=== PATIENT | male | born 1955 | race Caucasian/White ===

== ENCOUNTER → 2017-05-17 09:12 | Outpatient (CLI) | payer MEDICARE, OTHER, SELFPAY ==
[2017-05-17 11:11] LABS: Anion Gap 15.1 mEq/L (5-15); Blood Urea Nitrogen 16 mg/dL (7-18); Carbon Dioxide 26 mmol/L (21.0-32.0); Chloride 101 mmol/L (98-107); Creatinine,Serum 1.08 mg/dL (0.70-1.30); Estimated Glomerular Filt Rate 70 ml/min (>60); GFR (African American) 84 ML/MIN (>60); Glucose 94 mg/dL (74-106); Potassium 5.1 mmoL/L (3.5-5.1); Sodium 137 mmol/L (136-145)
== END ==
PROVIDERS: Internal Medicine Cardiovascular Disease; Visit Provider Internal Medicine
DX: I65.23 Occlusion and stenosis of bilateral carotid arteries (principal); I25.10 Atherosclerotic heart disease of native coronary artery without angina pectoris; E78.5 Hyperlipidemia, unspecified; I11.9 Hypertensive heart disease without heart failure
CPT/HCPCS: 36415; 80048

== ENCOUNTER → 2017-05-25 07:30 | Outpatient (CLI) | payer MEDICARE, OTHER, SELFPAY ==
--- NOTE | 2017-05-25 07:34 | CI_ITS ---
Cerebrovascular Exam Indications: 785.9 Bruit. 434.91 Cerebral artery occlusion unspecified with cerebral infarction. 433.10 Occlusion/stenosis of carotid artery without cerebral infarction. IMPRESSIONS 1. The bilateral vertebral arteries are patent with normal antegrade flow. 2. Study suggests 50-69% stenosis involving the right internal carotid artery. 3. Study suggests 100% stenosis involving the left internal carotid artery. No change from the study of 14-Sep-2016. History: Risk factors: Current tobacco use. Hypertension. Hyperlipidemia. Carotid duplex study. Complete study and Doppler flow study including spectral analysis, color and cortes scale imaging. Height: Height: 185.4cm. Height: 73in. Weight: Weight: 90.7kg. Weight: 199.6lb. Body mass index: BMI: 26.4kg/m^2. Body surface area: BSA: 2.17m^2. Location: Vascular laboratory. Patient status: Outpatient. Tables: Arterial flow: + +--------+--------+ Location V sys V ed + +--------+--------+ Right CCA - proximal 95.1cm/s 18.9cm/s + +--------+--------+ Right CCA - distal 44cm/s 12.6cm/s + +--------+--------+ Right ECA 62.9cm/s -------- + +--------+--------+ Right ICA - proximal 151cm/s 55.8cm/s + +--------+--------+ Right ICA - mid 113cm/s 45.6cm/s + +--------+--------+ Right ICA - distal 99.8cm/s 43.2cm/s + +--------+--------+ Right vertebral 48.7cm/s -------- + +--------+--------+ Left CCA - proximal 87.2cm/s 11cm/s + +--------+--------+ Left CCA - distal 39.8cm/s 7.4cm/s + +--------+--------+ Left ECA 103cm/s -------- + +--------+--------+ Left vertebral 33.9cm/s -------- + +--------+--------+ Velocity ratios: + + + + Right, V sys Right, V ed + + + + Max ICA/dist CCA 3.43 4.43 + + + + (Report amended ) Electronically signed by: Rosendo Wolff [id number]
== END ==
PROVIDERS: PCP Emergency Medicine; Visit Provider Internal Medicine Cardiovascular Disease
DX: I65.23 Occlusion and stenosis of bilateral carotid arteries (principal)
CPT/HCPCS: 93880

== ENCOUNTER → 2017-06-02 07:44 | Outpatient (CLI) | payer MEDICARE, OTHER, SELFPAY ==
[2017-06-02 08:07] LABS: Anion Gap 12.6 mEq/L (5-15); Blood Urea Nitrogen 12 mg/dL (7-18); Carbon Dioxide 26 mmol/L (21.0-32.0); Chloride 102 mmol/L (98-107); Estimated Glomerular Filt Rate 76 ml/min (>60); GFR (African American) 92 ML/MIN (>60); Glucose 104 mg/dL (74-106); Potassium 4.6 mmoL/L (3.5-5.1); Sodium 136 mmol/L (136-145)
== END ==
PROVIDERS: Visit Provider Physician Assistant
DX: I25.10 Atherosclerotic heart disease of native coronary artery without angina pectoris (principal); I65.23 Occlusion and stenosis of bilateral carotid arteries; M79.604 Pain in right leg; M79.605 Pain in left leg; R06.00 Dyspnea, unspecified; R60.9 Edema, unspecified
CPT/HCPCS: 36415; 80048; 83880

== ENCOUNTER → 2017-06-03 06:26 | Outpatient (CLI) | payer MEDICARE, OTHER, SELFPAY ==
--- NOTE | 2017-06-03 06:27 | CA_ITS ---
PROCEDURE: 2-D M-mode and color Doppler study INDICATIONS FOR THE TEST: Chest pain X COPDX Heart Murmur Tobacco SmokingX Palpitations Fatigue Syncope EdemaX HypertensionXDiabetes Mellitus Rheumatic Fever SOB HERNANDEZ Obesity HyperlipidemiaX Family History HD Additional History CAD LIMITED EXAM IN PSAX VIEWS PATIENT INFORMATION HEIGHT: 73 WEIGHT:220 GENDER: Male B/P:121/69 2-D/M-MODE INTERPRETATION: 2-D MEASUREMENTS OBSERVED VALUES IN CMS Right Ventricular Dimension (RVDd) 2.6 Interventricular Septum (Thickness)(IVsd) .9 Left Ventricular Internal Dimensions(LVIDd) 5.6 Left Ventricular Posterior Wall (Thickness)(LVPWd) .9 Aortic Root 3.5 Aortic Cusp Separation 2.0 Left Atrial Dimensions (LAD) 2.3 2D 1. Left atrium is qualitatively mildly enlarged, left ventricle is normal size, there is mild concentric left ventricular hypertrophy, visually estimated ejection fraction 55% with no obvious regional wall motion abnormality. 2. The right atrium and right ventricle are normal size and contractility. 3. The aortic valve is minimally thickened and fibrosed. 4. The mitral valve has mitral annular calcification. 5. The tricuspid valve restructure normal 6. The pulmonic valve is poorly visualized. 7. There is trivial pericardial effusion noted. DOPPLER INTERROGATION: Doppler interrogation of the aortic, mitral and tricuspid valvular presence of mild mitral and tricuspid regurgitation, tricuspid regurgitant jet velocity insufficient for calculation of the right ventricular systolic pressure, grade 1 diastolic dysfunction seen with tissue Doppler evidence of raised left atrial pressure. CONCLUSION: 1. Mildly left atrium, normal left ventricular size, mild concentric left ventricular hypertrophy, visually estimated ejection fraction 55% with no obvious regional wall motion abnormality, grade 1 diastolic dysfunction seen with tissue Doppler evidence of raised left atrial pressure. 2. Mild mitral and tricuspid addition 3. No significant pericardial effusion noted.
== END ==
PROVIDERS: PCP Emergency Medicine; Visit Provider Internal Medicine
DX: I25.10 Atherosclerotic heart disease of native coronary artery without angina pectoris (principal)
CPT/HCPCS: 93306

== ENCOUNTER → 2017-08-12 08:11 | Outpatient (CLI) | payer MEDICARE, OTHER, SELFPAY ==
[2017-08-12 10:32] LABS: Anion Gap 15.2 mEq/L (5-15); Blood Urea Nitrogen 18 mg/dL (7-18); Carbon Dioxide 28 mmol/L (21.0-32.0); Chloride 95 mmol/L (98-107); Creatinine,Serum 1.19 mg/dL (0.70-1.30); Estimated Glomerular Filt Rate 62 ml/min (>60); GFR (African American) 75 ML/MIN (>60); Glucose 99 mg/dL (74-106); Potassium 5.2 mmoL/L (3.5-5.1); Sodium 133 mmol/L (136-145)
== END ==
PROVIDERS: PCP Emergency Medicine; Visit Provider Internal Medicine Cardiovascular Disease
DX: E87.5 Hyperkalemia (principal)
CPT/HCPCS: 36415; 80048

== ENCOUNTER → 2017-09-06 12:45 | Outpatient (CLI) | payer MEDICARE, OTHER, SELFPAY ==
[2017-09-06 10:58] LABS: Anion Gap 15.5 mEq/L (5-15); Blood Urea Nitrogen 15 mg/dL (7-18); Calcium 9.3 mg/dL (8.5-10.1); Carbon Dioxide 24 mmol/L (21.0-32.0); Chloride 100 mmol/L (98-107); Creatinine,Serum 1.17 mg/dL (0.70-1.30); Estimated Glomerular Filt Rate 63 ml/min (>60); GFR (African American) 76 ML/MIN (>60); Glucose 104 mg/dL (74-106); Potassium 4.5 mmoL/L (3.5-5.1); Sodium 135 mmol/L (136-145)
== END ==
PROVIDERS: Visit Provider Physician Assistant
DX: I25.10 Atherosclerotic heart disease of native coronary artery without angina pectoris (principal); I11.9 Hypertensive heart disease without heart failure; E78.5 Hyperlipidemia, unspecified; R60.9 Edema, unspecified; R06.00 Dyspnea, unspecified
CPT/HCPCS: 36415; 80048

== ENCOUNTER → 2017-10-26 09:06 | Outpatient (CLI) | payer MEDICARE, OTHER, SELFPAY ==
[2017-10-26 09:57] LABS: Anion Gap 14.8 mEq/L (5-15); Blood Urea Nitrogen 15 mg/dL (7-18); Calcium 9.1 mg/dL (8.5-10.1); Carbon Dioxide 26 mmol/L (21.0-32.0); Chloride 97 mmol/L (98-107); Creatinine,Serum 1.36 mg/dL (0.70-1.30); Estimated Glomerular Filt Rate 53 ml/min (>60); GFR (African American) 64 ML/MIN (>60); Glucose 104 mg/dL (74-106); Potassium 4.8 mmoL/L (3.5-5.1); Sodium 133 mmol/L (136-145)
== END ==
PROVIDERS: PCP Emergency Medicine; Visit Provider Physician Assistant
DX: I25.10 Atherosclerotic heart disease of native coronary artery without angina pectoris (principal)
CPT/HCPCS: 36415; 80048

== ENCOUNTER → 2017-11-30 07:01 | Outpatient (CLI) | payer MEDICARE, OTHER, SELFPAY ==
--- NOTE | 2017-11-30 07:04 | NM_ITS ---
History and Indications: Coronary artery disease, hypertension, hyperlipidemia, chronic tobacco use, family history, chest pain and shortness of breath Procedure: Patient received a 0.4 mg of intravenous Lexiscan, resting heart rate was 74 beats per resting blood pressure 108/68, with Lexiscan maximum heart rate achieved was 102 bpm which is less than 85% of the maximum predicted heart rate and a blood pressure was 80/50. With Lexiscan patient complained of lightheadedness and dizziness. Electrocardiogram: Resting electrocardiogram showed sinus rhythm inferior infarct age indeterminate, right ventricle conduction delay, with Lexiscan there is less than 1.[address] segment depression noted from the baseline EKG. The EKG portion of the Lexiscan Myoview is nondiagnostic. Cardiac stress and resting SPECT images: Cardiac stress and rest SPECT images were obtained using technetium 99 Myoview 32.1 mCi at stress and 10.1 mCi at rest. Gated SPECT further analysis of segmental wall motion and calculation of the ejection fraction also done. Cardiac stress and rest SPECT images show a fixed defect involving the inferior, posterobasal and inferior apical wall suggestive of myocardial scarring, there is no significant sophia-infarct ischemia seen. Computer derived ejection fraction 59% with the moderate hypokinesis involving the inferior and posterobasal wall. Right ventricle is normal size and contractility. Conclusion: 1. The EKG portion of the Lexiscan Myoview is nondiagnostic. 2. Scintigraphic evidence of myocardial scarring involving the inferior and posterobasal wall without significant sophia-infarct ischemia. Computer derived ejection fraction is 59% with segmental wall motion abnormality described above, right ventricle is normal size and contractility. 3. Abnormal Lexiscan Myoview study.
--- NOTE | 2017-11-30 07:31 | HMH.ITSHM ---
TRAZODONE SPIRONOLACTON RANOLAZINE PROPRANOLOL PRAVASTATIN LISINOPRIL FUROSEMIDE ALBUTEROL
== END ==
PROVIDERS: PCP Emergency Medicine; Visit Provider Internal Medicine Cardiovascular Disease
DX: E78.5 Hyperlipidemia, unspecified (principal); I11.9 Hypertensive heart disease without heart failure; I20.9 Angina pectoris, unspecified; I25.10 Atherosclerotic heart disease of native coronary artery without angina pectoris; I45.10 Unspecified right bundle-branch block; I51.9 Heart disease, unspecified; I65.23 Occlusion and stenosis of bilateral carotid arteries; R60.9 Edema, unspecified
CPT/HCPCS: 78452; 93017; 93306; 93880; A9502; J2785

== ENCOUNTER → 2017-12-06 09:31 | Outpatient (CLI) | payer MEDICARE, OTHER, SELFPAY ==
--- NOTE | 2017-12-06 09:33 | CA_ITS ---
PROCEDURE: 2-D M-mode and color Doppler study INDICATIONS FOR THE TEST: Chest pain X COPDX Heart Murmur Tobacco SmokingX Palpitations Fatigue Syncope EdemaX Hypertension Diabetes Mellitus Rheumatic Fever SOB HERNANDEZ Obesity Hyperlipidemia Family History HD Additional History TDS COPD PATIENT INFORMATION HEIGHT: 73 WEIGHT:198 GENDER: Male B/P:96/57 2-D/M-MODE INTERPRETATION: 2-D MEASUREMENTS OBSERVED VALUES IN CMS Right Ventricular Dimension (RVDd) 2.4 Interventricular Septum (Thickness)(IVsd) .9 Left Ventricular Internal Dimensions(LVIDd) 4.4 Left Ventricular Posterior Wall (Thickness)(LVPWd) 1.0 Aortic Root 4.0 Aortic Cusp Separation 1.8 Left Atrial Dimensions (LAD) 2.5 2D 1. Left atrium is mildly enlarged, left ventricle is normal size, mild concentric left ventricular hypertrophy, visually estimated ejection fraction 55% with no regional wall motion abnormality, endocardial surfaces are poorly visualized. 2. The right atrium and right ventricle are normal size and contractility. 3. The aortic valve is minimally thickened and fibrosed. 4. The mitral and tricuspid valve are grossly normal. 5. The pulmonic valve is poorly visualized. 6. No significant pericardial effusion noted. DOPPLER INTERROGATION: Doppler interrogation of the aortic, mitral and tricuspid valvular presence of mild mitral and tricuspid regurgitation, tricuspid regurgitation jet velocity is insufficient for calculation of the right ventricular systolic pressure, grade 1 diastolic dysfunction seen without tissue Doppler evidence of raised left atrial pressure. CONCLUSION: 1. Mildly enlarged left atrium, normal left ventricular size, mild concentric left ventricular hypertrophy, visually estimated ejection fraction 55% with no regional wall motion abnormality, endocardial subsequent poorly visualized, grade 1 diastolic dysfunction seen without tissue Doppler evidence of raised left atrial pressure. 2. Mild mitral and tricuspid regurgitation 3. No significant pericardial effusion noted.
--- NOTE | 2017-12-06 09:33 | CI_ITS ---
Cerebrovascular Exam IMPRESSIONS 1. The bilateral vertebral arteries are patent with normal antegrade flow. 2. Study suggests 50-69% stenosis involving theright internal carotid artery. 3. Study suggests occlusion involving theleft internal carotid artery. No change from the study of 25-May-2017. Carotid duplex study. Complete study and Doppler flow study including spectral analysis, color and cortes scale imaging. Height: Height: 185.4cm. Height: 73in. Weight: Weight: 90.7kg. Weight: 199.6lb. Body mass index: BMI: 26.4kg/m^2. Body surface area: BSA: 2.17m^2. Location: Vascular laboratory. Patient status: Outpatient. Tables: Arterial flow: + +--------+--------+ Location V sys V ed + +--------+--------+ Right CCA - proximal 90.9cm/s 35.4cm/s + +--------+--------+ Right CCA - distal 61.5cm/s 20.1cm/s + +--------+--------+ Right ECA 66.7cm/s -------- + +--------+--------+ Right ICA - proximal 148cm/s 78.6cm/s + +--------+--------+ Right ICA - mid 96.3cm/s 45.2cm/s + +--------+--------+ Right ICA - distal 92.4cm/s 44.6cm/s + +--------+--------+ Right vertebral 41cm/s -------- + +--------+--------+ Left CCA - proximal 115cm/s 19.6cm/s + +--------+--------+ Left CCA - distal 88.7cm/s 14cm/s + +--------+--------+ Left ECA 107cm/s -------- + +--------+--------+ Left vertebral 60.8cm/s -------- + +--------+--------+ Velocity ratios: + + + + Right, V sys Right, V ed + + + + Max ICA/dist CCA 2.41 3.91 + + + + (Report amended ) Electronically signed by: Rosendo Wolff [id number]
== END ==
PROVIDERS: PCP Emergency Medicine; Visit Provider Internal Medicine Cardiovascular Disease
DX: E78.5 Hyperlipidemia, unspecified; I11.9 Hypertensive heart disease without heart failure; I20.9 Angina pectoris, unspecified; I25.10 Atherosclerotic heart disease of native coronary artery without angina pectoris; I51.9 Heart disease, unspecified; F17.200 Nicotine dependence, unspecified, uncomplicated; I95.9 Hypotension, unspecified; R06.00 Dyspnea, unspecified; I65.23 Occlusion and stenosis of bilateral carotid arteries
CPT/HCPCS: 93306; 93880

== ENCOUNTER → 2018-01-21 10:44 | Outpatient (CLI) | payer MEDICARE, OTHER, SELFPAY | PROVIDERS: PCP Emergency Medicine; Visit Provider Orthopaedic Surgery Adult Reconstructive Orthopaedic Surgery | DX: M51.36 Other intervertebral disc degeneration, lumbar region (principal); M54.9 Dorsalgia, unspecified ==

== ENCOUNTER 2018-01-24 07:41 | Outpatient (RCR) | payer MEDICARE, OTHER, SELFPAY | END 2018-01-24 08:00 | disposition home or self-care (01) | LOC: PT 07:41 | PROVIDERS: Visit Provider Orthopaedic Surgery Adult Reconstructive Orthopaedic Surgery | DX: M51.36 Other intervertebral disc degeneration, lumbar region (principal) | CPT/HCPCS: 97110; 97163 ==

== ENCOUNTER → 2018-05-24 14:58 | Outpatient (CLI) | payer MEDICARE, OTHER, SELFPAY ==
[2018-05-24 15:29] LABS: Basophils # 0.1 K/mm3 (0-0.2); Basophils % 0.6 % (0.1-2.0); Eosinophils # 0.2 K/mm3 (0.0-0.4); Eosinophils % 2.4 % (0.1-12.0); Hematocrit 45.5 % (42.0-52.0); Lymphocytes # 1.7 K/mm3 (0.7-4.5); Lymphocytes % 17.8 % (10-50); Mean Corpuscular HGB Conc 32.9 g/dL (31.8-35.4); Mean Corpuscular Hemoglobin 33.6 pg (27.0-31.2); Mean Corpuscular Volume 102.2 fl (80-94); Mean Platelet Volume 7.9 fl (7.4-10.4); Monocytes # 0.6 K/mm3 (0.1-1.0); Monocytes % 5.8 % (1.7-9.3); Neutrophils # 7.1 K/mm3 (1.8-7.8); Neutrophils % 73.5 % (37.0-80.0); Platelet Count 285 K/mm3 (142-424); Red Blood Count 4.46 M/mm3 (4.60-6.20); Red Cell Distribution Width 12.7 % (11.5-17.5); White Blood Count 9.6 K/mm3 (4.8-10.8)
[2018-05-24 15:39] LABS: Alanine Aminotransferase 20 U/L (12-78); Albumin Level 3.9 gm/dL (3.4-5.0); Albumin/Globulin Ratio 1.1 (1.1-1.8); Alkaline Phosphatase 73 U/L (46-116); Anion Gap 17.1 mEq/L (5-15); Aspartate Amino Transferase 17 U/L (15-37); Bilirubin,Total 0.4 mg/dL (0.2-1.0); Blood Urea Nitrogen 10 mg/dL (7-18); Calcium 8.9 mg/dL (8.5-10.1); Carbon Dioxide 24 mmol/L (21.0-32.0); Chloride 102 mmol/L (98-107); Chol/HDL Ratio 3.7 (1-3.5); Cholesterol 157 mg/dL (140-200); Creatinine,Serum 1.12 mg/dL (0.70-1.30); Estimated Glomerular Filt Rate 66 ml/min (>60); GFR (African American) 80 ML/MIN (>60); Globulin 3.4 gm/dl (1.3-3.2); Glucose 94 mg/dL (74-106); HDL Cholesterol 42 mg/dL (27-67); LDL Cholesterol 64 mg/dL (0-130); Potassium 5.1 mmoL/L (3.5-5.1); Sodium 138 mmol/L (136-145); T4 (Thyroxine) 8.9 ug/dl (4.7-13.3); Thyroid Stimulating Hormone 1.09 uIU/ml (0.358-3.740); Total Protein,Serum 7.3 gm/dL (6.4-8.2); Triglycerides 255 mg/dL (30-200); VLDL Cholesterol 51 mg/dL (0-40)
[2018-05-26 12:58] LABS: Prostate Specific Ag 0.5 ng/mL (0.0-4.0); Vitamin D 25 Hydroxy 7.6 ng/mL (30.0-100.0)
== END ==
PROVIDERS: Visit Provider Nurse Practitioner Family
DX: R60.9 Edema, unspecified (principal); Z00.00 Encounter for general adult medical examination without abnormal findings; M54.16 Radiculopathy, lumbar region; I11.9 Hypertensive heart disease without heart failure
CPT/HCPCS: 80053; 80061; 82652; 84153; 84154; 84436; 84443; 85025

== ENCOUNTER 2018-06-21 19:54 | Observation (INO) ==
[2018-06-21 20:15] LABS: Basophils % 0.6 % (0.1-2.0); Eosinophils # 0.2 K/mm3 (0.0-0.4); Eosinophils % 3.8 % (0.1-12.0); Hematocrit 41.3 % (42.0-52.0); Hemoglobin 14.3 g/dL (14.1-18.0); Lymphocytes # 1.8 K/mm3 (0.7-4.5); Lymphocytes % 30.3 % (10-50); Mean Corpuscular HGB Conc 34.5 g/dL (31.8-35.4); Mean Corpuscular Hemoglobin 33.2 pg (27.0-31.2); Mean Corpuscular Volume 96.2 fl (80-94); Mean Platelet Volume 7.1 fl (7.4-10.4); Monocytes # 0.4 K/mm3 (0.1-1.0); Neutrophils # 3.6 K/mm3 (1.8-7.8); Neutrophils % 59.3 % (37.0-80.0); Platelet Count 268 K/mm3 (142-424); Red Cell Distribution Width 12.7 % (11.5-17.5); White Blood Count 6.1 K/mm3 (4.8-10.8)
--- NOTE | 2018-06-21 20:29 | Emergency Department Note ---
ED Disposition Clinical Impression: Unstable angina pectoris, RBBB, Tobacco dependence, Diastolic dysfunction CAD (coronary artery disease) Qualifiers: Coronary Disease-Associated Artery/Lesion type: unspecified vessel or lesion type [place] vs. transplanted heart: [place] heart Associated angina: with unstable angina Qualified Code(s): I25.110 - Atherosclerotic heart disease of [place] coronary artery with unstable angina pectoris HLD (hyperlipidemia) Qualifiers: Hyperlipidemia type: unspecified Qualified Code(s): E78.5 - Hyperlipidemia, unspecified HHD (hypertensive heart disease) Qualifiers: Heart failure presence: with heart failure Heart failure type: unspecified Qualified Code(s): I11.0 - Hypertensive heart disease with heart failure Disposition: Admitted as Observation Condition on Discharge: Fair Referrals: Godfrey Jhaveri MD [Primary Care Provider] - - Critical Care Critical Care Time: No Attestation: On 06/21/18, the high probability of a clinically significant, sudden or life threatening deterioration of the following system(s) required my full and direct attention, intervention and personal management. The time I documented below is in addition to time spent performing reported procedures but includes the following listed in this critical care notation. Medical Decision Making - Medical Records Medical records reviewed: Yes: I reviewed the patient's medical records. - Eric Inquiry Pt receiving controlled substance: No Vital Signs: 06/21/18 19:54 06/21/18 20:09 06/21/18 21:00 Temperature 98.8 F Temperature Source Oral Pulse Rate [Right Radial] 88 86 80 Respiratory Rate 16 16 Blood Pressure [Right Arm] 115/87 115/97 H 132/84 Blood Pressure Mean [Right Arm] 96 103 100 Blood Pressure Source [Right Arm] Automatic Cuff Automatic Cuff Automatic Cuff Blood Pressure Position [Right Arm] Sitting Sitting Sitting 02 Sat by Pulse Oximetry 97 97 97 Oxygen Delivery Method Room Air Room Air Room Air 06/21/18 21:55 06/21/18 22:05 Temperature Temperature Source Pulse Rate [Right Radial] 76 72 Respiratory Rate Blood Pressure [Right Arm] 131/81 129/74 Blood Pressure Mean [Right Arm] 97 92 Blood Pressure Source [Right Arm] Automatic Cuff Automatic Cuff Blood Pressure Position [Right Arm] Sitting Sitting 02 Sat by Pulse Oximetry 97 97 Oxygen Delivery Method Room Air Room Air - Lab Data Lab results reviewed: Yes: I reviewed the patient's lab results. Lab Results 06/21/18 20:05: WBC 6.1, RBC 4.30 L, Hgb 14.3, Hct 41.3 L, MCV 96.2 H, MCH 33.2 H, MCHC 34.5, RDW 12.7, Plt Count 268, MPV 7.1 L, Neut % (Auto) 59.3, Lymph % (Auto) 30.3, [place] % (Auto) 6.0, Eos % (Auto) 3.8, Baso % (Auto) 0.6, Neut # (Auto) 3.6, Lymph # (Auto) 1.8, [place] # (Auto) 0.4, Eos # (Auto) 0.2, Baso # ( Auto) 0.0 06/21/18 20:05: Sodium 135 L, Potassium 3.5, Chloride 98, Carbon Dioxide 27, Anion Gap 13.5, BUN 6 L, Creatinine 1.05, Estimated Creat Clear 98, Estimated GFR 72, Est GFR ( Amer) 87, Glucose 99, Calcium 9.3, Troponin I < 0.02 06/21/18 21:20: Urine Color Yellow, Urine Appearance Clear, Urine pH 6.0, Ur Specific [place] <= 1.005, Urine Protein Negative, Urine Glucose (UA) Negative, Urine Ketones Negative, Urine Blood Trace-i, Urine Nitrate Negative, Urine Bilirubin Negative, Urine Urobilinogen 0.2, Ur Leukocyte Esterase Negative, Urine RBC 5-10, Urine WBC 3-5, Ur Squamous Epith Cells Occasional, Urine B acteria Trace Result diagrams: 06/21/18 20:05 06/21/18 20:05 Orders (Tests/Meds): ED MEDICATIONS Generic Name Dose Route Start Last Admin Trade Name Freq PRN Reason Stop Dose Admin Sodium Chloride 1,000 mls @ 999 mls/hr 06/21/18 20:15 06/21/18 20:31 Sod Chlor 0.9% 1000ml Bag IV 06/21/18 21:15 999 mls/hr .Q1H1M SAL[place] Administration Discontinued Medications Generic Name Dose Route Start Last Admin Trade Name Freq PRN Reason Stop Dose Admin Aspirin 324 mg 06/21/18 20:04 06/21/18 20:06 Aspirin 81mg Chewable Tablet PO 06/21/18 20:05 324 mg ONCE ONE Administration Methylprednisolone Sodium Succinate 125 mg 06/21/18 20:30 06/21/18 20:31 Solu-Medrol 125mg/2ml Vial IV 06/21/18 20:31 125 mg ONCE ONE Administration Nitroglycerin 1 gm 06/21/18 22:03 06/21/18 22:07 Nitroglycerin 1 Inch Oint Udp TD 06/21/18 22:04 1 gm ONCE ONE Administration ORDERS Category Date Time Status XR chest portable Stat Exams 06/21/18 20:03 Taken - Radiology Data #1 Image(s): Chest Image Reviewed: Yes I reviewed the patient's radiology image Preliminary Findings: Normal/NAD - ECG Data Tracing #1 Normal Sinus Rhythm: Yes Ischemic changes: non-specific ST-T wave changes Conduction abnormalities present: RBBB ECG compared to prior tracings: there are no significant changes Chest Pain HPI - General Chief Complaint: Chest Pain Stated Complaint: Chest Pain Time Seen by Provider: 06/21/18 20:20 Mode of Arrival: Wheelchair Source of Information: Patient, Spouse, Relative, Medical Record Limitations: No Limitations Description of Symptoms (Recalled from ER Triage Doc. by RN): Pt c/o chest pain x3 days, reports chest pain became worse today along with complaints of generalized weakness and dizziness, reports chest pain "comes and goes" and is in the "left side of his chest" non radiating, associated shortness of breath, no distress during triage, alert oriented x3 - History of Present Illness HPI narrative: increasing ant chest pain over the last 3 days with hx of cad - last cath june 2018-pt with chest with act and rest - does continue to smoke complaint: chest pain indicative of cardiac Onset (ago): day(s) Duration: intermittent Activity at onset: during rest Pain location: left chest Quality: tightness Pain radiation: LUE Risk Factors for CAD: Hypertension, Family Hx of CAD, Smoking Treatments prior to or on arrival for Cardiac Chest Pain: none - ARMANDO Score for Non-Stemi Age of Patient: 60-69 years old Heart Rate: 70-89 bpm Systolic Blood Pressure: 100-119 mmHg Serum Creatinine: 0.80-1.19 mg/dl CHF [place] Class: I-No CHF Other Risk Factors: None Non-Stemi Risk Score: 117 - Related Data Prior Cardiac Testing/Procedures: Cardiac Angiogram Home Medications Medication Instructions Recorded Confirmed Furosemide [Furosemide 40MG tAB] 40 mg PO DAILY 12/25/17 06/21/18 Lisinopril [Prinivil 20mg Tablet] 20 mg PO DAILY 12/25/17 06/21/18 Clopidogrel Bisulfate [Plavix 75mg 75 mg PO DAILY 06/21/18 06/21/18 Tab] Ergocalciferol (Vitamin D2) 50,000 unit PO QWEEK 06/21/18 06/21/18 [Drisdol] Previous Rx's Medication Instructions Recorded tizanidine 4 mg tablet 4 mg PO TID PRN #12 tab 12/24/17 ranolazine ER 500 mg 500 mg PO Q12H #60 tab 02/24/18 tablet,extended release,12 hr albuterol sulfate HFA 90 1 puff INHALATION Q4-6H PRN #18 g 02/27/18 mcg/actuation aerosol inhaler spironolactone 25 mg tablet 25 mg PO DAILY #90 tab 03/25/18 pravastatin 40 mg tablet 40 mg PO QHS #90 tab 05/24/18 trazodone 50 mg tablet 50 mg PO QHS PRN #90 tab 06/14/18 propranolol ER 120 mg capsule,24 120 mg PO QHS #30 cap 06/17/18 hr,extended release Allergies Allergy/AdvReac Type Severity Reaction Status Date / Time Iodinated Contrast Media - Allergy Unknown Verified 06/21/18 20:03 Oral and [Iodinated Contrast Media - IV Dye] [facility] History - Hepatitis A Screen Drug use history?: No High risk sexual behaviors?: No History of sexually transmitted infection?: No Currently employed?: No Childcare worker?: No Do you have indoor plumbing?: Yes Do you have electricity?: Yes Attestation statement:: This patient has been screened for Hepatitis A risk factors. I have reviewed the patient's past medical history: Yes Medical History: Reports:: Chronic Obstructive Pulmonary Disease (COPD), Coronary Artery Disease, Hyperlipidemia, Hypertension Denies:: Cancer, Diabetes Mellitus Type 1, Diabetes Mellitus Type 2, Internal Pacemaker, MRSA, Seizures Other Surgeries: Yes: No Previous Surgery, Angiogram, Cancer Surgery, Cardiac Catheterization, Coronary Stent, Other. 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) Fractures: No - Social History Smoking Status: Current every day smoker Tobacco Type: cigarettes # Packs/Day (cigarettes): 1 Alcohol Intake: never Alcohol Intake Frequency:: other Substance Use Type: denies use Occupational Status: unemployed Housing: apartment Household Members: other - Psychiatric History Expresses thoughts of harming self/others: None Suicide Plan Description: No Plan Family Hx:: Cancer Comment: heart disease ROS Obtained: Yes All systems reviewed & no additional complaints - Constitutional Constitutional: Denies fever(s) - Eyes Eyes: Denies change in vision - ENT Ears, Nose, Mouth, and Throat: Denies sore throat - Cardiovascular Cardiovascular: Reports chest pain at rest, Reports radiating jaw, neck or arm pain - Respiratory Respiratory: No cough - Gastrointestinal Gastrointestingal: Denies: vomiting - Genitourinary Male Genitourinary: Denies hematuria - Musculoskeletal Musculoskeletal: Denies joint swelling - Integumentary/Breasts Skin/Breast: Denies rash - Neurologic Neurologic: Denies headache(s), Denies seizure-like activity Physical Exam - General General appearance: alert, in no apparent distress - Head Head exam: normocephalic - Eye Eye exam: Present: PERRL, EOMI - ENT ENT exam: Present: mucous membranes dry - Neck Neck exam: Present: trachea midline - Respiratory Respiratory exam: Present: normal lung sounds bilaterally. Absent: respiratory distress - Cardiovascular Cardiovascular exam: Present: regular rate, systolic murmur, +S4 - Abdominal Exam Abdominal exam: Present: soft - Extremities Exam Extremities exam: Present: full ROM - Neurological Exam Neurological exam: Present: alert, oriented X3, CN II-XII intact - Psychiatric Psychiatric exam: Present: normal affect - Skin Skin exam: Absent: rash
[2018-06-21 20:30] LABS: Anion Gap 13.5 mEq/L (5-15); Blood Urea Nitrogen 6 mg/dL (7-18); Calcium 9.3 mg/dL (8.5-10.1); Carbon Dioxide 27 mmol/L (21.0-32.0); Chloride 98 mmol/L (98-107); Glucose 99 mg/dL (74-106); Potassium 3.5 mmoL/L (3.5-5.1); Sodium 135 mmol/L (136-145)
[2018-06-21 21:30] LABS: Microscopic, Urine URINE MICROSCOPIC (MICROSCOPIC)
[2018-06-21 21:34] LABS: Appearance,Urine CLEAR (Clear); Bilirubin,Urine Negative (Negative); Blood, Urine TRACE-I (Negative); Color,Urine YELLOW (Yellow); Glucose,Urine (UA) Negative (Negative); Ketones,Urine Negative (Negative); Leukocyte Esterase,Urine Negative (Negative); Protein,Urine Negative (Negative); Specific Gravity, Urine <= 1.005 (1.005-1.030); Urobilinogen,Urine 0.2 EU/dl (0.2)
[2018-06-21 21:53] LABS: Bacteria,Urine Trace /lpf; Squamous Epithelial Cell,Urine Occasional #/hpf (0-5)
[2018-06-22 04:59] LABS: Basophils % 0.2 % (0.1-2.0); Eosinophils % 0.6 % (0.1-12.0); Hematocrit 39.1 % (42.0-52.0); Hemoglobin 13.3 g/dL (14.1-18.0); Lymphocytes # 0.7 K/mm3 (0.7-4.5); Lymphocytes % 18.1 % (10-50); Mean Corpuscular HGB Conc 33.9 g/dL (31.8-35.4); Mean Corpuscular Hemoglobin 33.2 pg (27.0-31.2); Mean Corpuscular Volume 98.1 fl (80-94); Mean Platelet Volume 7.1 fl (7.4-10.4); Monocytes # 0.1 K/mm3 (0.1-1.0); Neutrophils # 2.9 K/mm3 (1.8-7.8); Platelet Count 223 K/mm3 (142-424); Red Blood Count 3.99 M/mm3 (4.60-6.20); Red Cell Distribution Width 12.7 % (11.5-17.5); White Blood Count 3.6 K/mm3 (4.8-10.8)
[2018-06-22 05:01] LABS: Calcium 8.7 mg/dL (8.5-10.1); Chol/HDL Ratio 3.7 (1-3.5)
--- NOTE | 2018-06-22 07:33 | Pharmacy Consult Notes ---
[facility] Pharmacy VTE Monitoring - Patient Demographics Admission date: 06/21/18 Report Date: 06/22/18 Time: 07:32 Allergies/Adverse Reactions: Patient Allergies Iodinated Contrast Media - Oral and [Iodinated Contrast Media - IV Dye] Allergy (Unknown, Verified 06/21/18 20:03) Height: 1.85 m Weight: 93.582 kg Patient Problems: Current Active Problems (Updated 06/21/18 @ 22:21 by Godfrey Jhaveri MD) Unstable angina pectoris (Acute) Diastolic dysfunction (Chronic) RBBB (Acute) Tobacco dependence (Chronic) HLD (hyperlipidemia) (Chronic) HHD (hypertensive heart disease) (Chronic) CAD (coronary artery disease) (Chronic) - VTE Risk Labs: VTE Related Lab Results Hgb 13.3 g/dL (14.1-18.0) L 06/22/18 04:26 Hct 39.1 % (42.0-52.0) L 06/22/18 04:26 Plt Count 223 K/mm3 (142-424) 06/22/18 04:26 BUN 9 mg/dL (7-18) D 06/22/18 04:26 Creatinine 1.03 mg/dL (0.70-1.30) 06/22/18 04:26 Estimated Creat Clear 98 mL/min (50-200) 06/22/18 04:26 Was VTE Risk Assessment Performed: Yes VTE Score: 7 VTE Risk Level: Moderate Risk Clinical Trial Participant: No - Prophylaxis VTE Prophylaxis Ordered?: Yes Types of VTE Prophylaxis: TEDS Knee High Location of Applied Device: Bilateral Lower Extremeties
--- NOTE | 2018-06-22 10:17 | Consult Report ---
History of Present Illness Consult date: 06/22/18 Requesting physician: Godfrey Jhaveri Consult reason: chest pain Chief complaint: Chest pain Additional Medical History:: 1 coronary artery disease 2 hypertension 3 hyperlipidemia 4 COPD 5 tobacco user History of present illness: This is a 62-year-old gentleman who was admitted to the hospital with chest pain. The patient states that his chest pain had been going on for approximately 3 days. States that this is a sharp pain in the left side of his chest. He states that it does not radiate. It was associated with shortness of breath and nausea. He states that this pain was about a 9 out of 10 at home. He states that since being in the hospital this pain has improved a lot. He denies any fever, chills, vomiting, diarrhea, PND or orthopnea. The patient is very adamant that he is ready to go home today. Chest pain was at rest and with exertion. Nothing worsened the chest pain and nothing helped to improve the chest pain. The patient did have a cardiac catheterization in June 2017. It did show some mild disease to his LAD. His circumflex artery had patent stents and mild disease. His right coronary artery also had some mild to moderate disease. His LVEDP was elevated at 30 mmHg. The patient does need long-acting nitrates and diuretics. [facility] History I have reviewed the patient's past medical history: Yes Medical History: Reports:: Cancer (finger), Chronic Obstructive Pulmonary Disease (COPD), Coronary Artery Disease, Hyperlipidemia, Hypertension Denies:: Diabetes Mellitus Type 1, Diabetes Mellitus Type 2, Internal Pacemaker, MRSA, Seizures *Have you ever received a pneumonia vaccine?: Yes (2016) *Have you received a flu vaccine this season?: Yes (2017) Other Surgeries: Yes: No Previous Surgery, Angiogram, Cancer Surgery, Cardiac Catheterization, Cholecystectomy, Coronary Stent, Other. 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) Fractures: No - *Social History Educational Level: Completed High School Smoking Status: Current every day smoker Tobacco Type: cigarettes # Packs/Day (cigarettes): 1 Alcohol Intake: former Alcohol Intake Frequency:: other Substance Use Type: denies use *Occupational Status:: unemployed, retired Housing: apartment Household Members: other *Travel in the last 8 weeks: None - Psychiatric History Expresses thoughts of harming self/others: None Suicide Plan Description: No Plan Family Hx:: Cancer, Hypertension, Stroke Meds Home Medications Medication Instructions Recorded Confirmed Type tizanidine 4 mg tablet 4 mg PO TID PRN #12 tab 12/24/17 06/21/18 Rx Furosemide [Furosemide 40MG tAB] 40 mg PO DAILY 12/25/17 06/21/18 History Lisinopril [Prinivil 20mg Tablet] 20 mg PO DAILY 12/25/17 06/21/18 History ranolazine ER 500 mg 500 mg PO Q12H #60 tab 02/24/18 06/21/18 Rx tablet,extended release,12 hr albuterol sulfate HFA 90 1 puff INHALATION Q4-6H PRN #18 g 02/27/18 06/21/18 Rx mcg/actuation aerosol inhaler spironolactone 25 mg tablet 25 mg PO DAILY #90 tab 03/25/18 06/21/18 Rx pravastatin 40 mg tablet 40 mg PO QHS #90 tab 05/24/18 06/21/18 Rx trazodone 50 mg tablet 50 mg PO QHS PRN #90 tab 06/14/18 06/21/18 Rx propranolol ER 120 mg capsule,24 120 mg PO QHS #30 cap 06/17/18 06/21/18 Rx hr,extended release Clopidogrel Bisulfate [Plavix 75mg 75 mg PO DAILY 06/21/18 06/21/18 History Tab] Ergocalciferol (Vitamin D2) 50,000 unit PO WEEKLY 06/21/18 06/22/18 History [Drisdol] Allergies Allergy/AdvReac Type Severity Reaction Status Date / Time Iodinated Contrast Media - Allergy Unknown Verified 06/21/18 20:03 Oral and [Iodinated Contrast Media - IV Dye] Review of Systems - Review of Systems Review of systems:: pertinent systems reviewed and negative unless documented below - *Cardiovascular Reports chest pain, Reports chest pain at rest, Reports chest pain with acti vity, Reports shortness of breath, Reports shortness of breath with activity - *Respiratory Reports shortness of breath, Reports shortness of breath with activity - *Gastrointestinal Reports nausea - *Neurologic Denies headache(s), Denies seizure-like activity Exam Vital signs and Labs for Last 24 Hours: Temp Pulse Resp BP Pulse Ox 97.8 F 84 18 144/87 H 97 06/22/18 08:00 06/22/18 08:00 06/22/18 08:00 06/22/18 08:00 06/22/18 08:00 Laboratory Results - last 24 hr 06/21/18 20:05: WBC 6.1, RBC 4.30 L, Hgb 14.3, Hct 41.3 L, MCV 96.2 H, MCH 33.2 H, MCHC 34.5, RDW 12.7, Plt Count 268, MPV 7.1 L, Neut % (Auto) 59.3, Lymph % (Auto) 30.3, [place] % (Auto) 6.0, Eos % (Auto) 3.8, Baso % (Auto) 0.6, Neut # (Aut o) 3.6, Lymph # (Auto) 1.8, [place] # (Auto) 0.4, Eos # (Auto) 0.2, Baso # (Auto) 0.0 06/21/18 20:05: Sodium 135 L, Potassium 3.5, Chloride 98, Carbon Dioxide 27, Anion Gap 13.5, BUN 6 L, Creatinine 1.05, Estimated Creat Clear 98, Estimated GFR 72, Est GFR ( Amer) 87, Glucose 99, Calcium 9.3, Troponin I < 0.02 06/21/18 21:20: Urine Color Yellow, Urine Appearance Clear, Urine pH 6.0, Ur Specific [place] <= 1.005, Urine Protein Negative, Urine Glucose (UA) Negative, Urine Ketones Negative, Urine Blood Trace-i, Urine Nitrate Negative, Urine Bilirubin Negative, Urine Urobilinogen 0.2, Ur Leukocyte Esterase Negative, Urine RBC 5-10, Urine WBC 3-5, Ur Squamous Epith Cells Occasional, Urine Bacteria Trace 06/22/18 01:26: Troponin I < 0.02 06/22/18 04:26: Troponin I < 0.02 06/22/18 04:26: WBC 3.6 L D, RBC 3.99 L, Hgb 13.3 L, Hct 39.1 L, MCV 98.1 H, MCH 33.2 H, MCHC 33.9, RDW 12.7, Plt Count 223, MPV 7.1 L, Neut % (Auto) 79.0, Lymph % (Auto) 18.1, [place] % (Auto) 2.0, Eos % (Auto) 0.6, Baso % (Auto) 0.2, Neut # (Auto) 2.9, Lymph # (Auto) 0.7, [place] # (Auto) 0.1, Eos # (Auto) 0.0, Baso # (Aut o) 0.0 06/22/18 04:26: Sodium 139, Potassium 4.0, Chloride 104, Carbon Dioxide 27, Anion Gap 12.0, BUN 9 D, Creatinine 1.03, Estimated Creat Clear 98, Estimated GFR 73, Est GFR ( Amer) 89, Glucose 158 H D, Calcium 8.7, Magnesium 2.0, Triglycerides 114, Cholesterol 132 L, LDL Cholesterol 73, VLDL Cholesterol 23, HDL Cholesterol 36, Cholesterol/HDL Ratio 3.7 H I & O for Last 24 hours: Intake & Output 06/19/18 06/20/18 06/21/18 06/22/18 23:59 23:59 23:59 23:59 Intake Total 1000 / 1000 Output Total 300 / 300 950 / 950 Balance 700 / 700 -950 / -950 Weight 206 lb 5 oz 201 lb 3 oz Narrative: His EKG shows sinus rhythm with incomplete right bundle branch block, old inferior DE pattern, old anterior DE pattern and a rate of 89. No significant change. - Constitutional no acute distress, average body habitus - *Routine HEENT Exam Head: Present: normocephalic, atraumatic Eye: Present: EOMI, PERRL ENT: Present: mucous membranes moist - *Routine Neck Exam Present: supple, full ROM, normal carotid upstroke. Absent: JVD, carotid bruit, lymphadenopathy - *Routine Respiratory Exam Present: CTA bilaterally - *Routine Cardiovascular Exam Present: RRR, Normal S1, Normal S2. Absent: murmur, gallop - *Routine Abdominal Exam Present: soft, normoactive bowel sounds. Absent: tenderness, distended - *Routine Extremities Exam Present: full ROM, pulses intact, normal capillary refill. Absent: cyanosis, clubbing, edema - *Routine Skin Exam Present: intact, warm. Absent: erythema, rash - *Routine Neurological Exam Present: alert, oriented X3, CN II-XII intact. Absent: sensory deficit, motor deficit - Routine Psychiatric Exam Present: normal affect, normal thought process - Detailed Eye Exam Eyelids: Left normal inspection Assessment and Plan (1) Angina pectoris Current visit: Yes Status: Acute Category: Medical Code(s): I20.9 - Angina pectoris, unspecified (2) Diastolic dysfunction Current visit: Yes Status: Chronic Category: Medical Code(s): I51.9 - Heart disease, unspecified (3) Dyspnea Current visit: No Status: Chronic Qualifiers: Dyspnea type: dyspnea on exertion Qualified Code(s): R06.09 - Other forms of dyspnea Category: Medical Code(s): R06.00 - Dyspnea, unspecified (4) Tobacco dependence Current visit: Yes Status: Chronic Category: Medical Code(s): F17.200 - Nicotine dependence, unspecified, uncomplicated (5) Carotid artery stenosis Current visit: No Status: Chronic Qualifiers: Laterality: bilateral Qualified Code(s): I65.23 - Occlusion and stenosis of bilateral carotid arteries Category: Medical Code(s): I65.29 - Occlusion and stenosis of unspecified carotid artery (6) HLD (hyperlipidemia) Current visit: Yes Status: Chronic Qualifiers: Hyperlipidemia type: unspecified Qualified Code(s): E78.5 - Hyperlipidemia, unspecified Category: Medical Code(s): E78.5 - Hyperlipidemia, unspecified (7) HHD (hypertensive heart disease) Current visit: Yes Status: Chronic Qualifiers: Heart failure presence: with heart failure Heart failure type: unspecified Qualified Code(s): I11.0 - Hypertensive heart disease with heart failure Category: Medical Code(s): I11.9 - Hypertensive heart disease without heart failure (8) CAD (coronary artery disease) Current visit: Yes Status: Chronic Qualifiers: Coronary Disease-Associated Artery/Lesion type: unspecified vessel or lesion type Hoh vs. transplanted heart: [place] heart Associated angina: with unstable angina Qualified Code(s): I25.110 - Atherosclerotic heart disease of [place] coronary artery with unstable angina pectoris Category: Medical Code(s): I25.10 - Atherosclerotic heart disease of [place] coronary artery without angina pectoris - Assessment and plan all Dx Assessment and Plan for all problems:: Plan: 1. The patient was admitted to the hospital with chest pain that have been going on for approximately 3 days. The patient has ruled out for an DE. He has had 3- troponins. He states that his chest pain has improved since being in the hospital and having Nitropaste in place. The patient was cathed less than a y ear ago at which time he had mild to moderate disease with patent stents. His LVEDP was elevated at that time. The patient does need medical management with long-acting nitrates and diuretics. 2. We will increase his Ranexa to thousand milligrams p.o. twice daily and start him on isosorbide mononitrate 30 mg daily. We will also increase his Lasix to 40 mg twice daily for diuresis. Will also increase aldactone to 25 mg twice a day as well. 3. CAD is present. However he has mild to moderate nonocclusive coronary artery disease. Long-acting nitrates have been started and adjusted. 4. His blood pressure is well controlled. 5. His LDL goal is less than 55. 6. Tobacco cessation is highly advised and counseled. 7. The patient is stable today from a cardiac standpoint for discharge home today once he has been started on long-acting nitrates and diuretics. The patient will need to follow-up in 1 to 2 weeks on an outpatient basis. Thank you for the opportunity to help participate in the care of this patient.
--- NOTE | 2018-06-22 13:15 | H&P/Discharge Summary ---
General - General Admission date:: 06/21/18 Discharge date: 06/22/18 *Admission Date: 06/21/18 *Chief complaint: chest pain *History of present illness: this wm presented to ed with 3 day hx of progressive chest pain with positive risk factors and known cad -pt was admitted for eval and treatment [facility] History I have reviewed the patient's past medical history: Yes Medical History: Reports:: Cancer (finger), Chronic Obstructive Pulmonary Disease (COPD), Coronary Artery Disease, Hyperlipidemia, Hypertension Denies:: Diabetes Mellitus Type 1, Diabetes Mellitus Type 2, Internal Pacemaker, MRSA, Seizures *Have you ever received a pneumonia vaccine?: Yes (2016) *Have you received a flu vaccine this season?: Yes (2017) Other Surgeries: Yes: No Previous Surgery, Angiogram, Cancer Surgery, Cardiac Catheterization, Cholecystectomy, Coronary Stent, Other. 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) Fractures: No - *Social History Educational Level: Completed High School Smoking Status: Current every day smoker Tobacco Type: cigarettes # Packs/Day (cigarettes): 1 Alcohol Intake: former Alcohol Intake Frequency:: other Substance Use Type: denies use *Occupational Status:: unemployed, retired Housing: apartment Household Members: other *Travel in the last 8 weeks: None - Psychiatric History Expresses thoughts of harming self/others: None Suicide Plan Description: No Plan Family Hx:: Cancer, Hypertension, Stroke Review of Systems - Review of Systems Review of systems:: pertinent systems reviewed and negative unless documented below - Constitutional Denies fever(s) - Eyes Denies change in vision - ENT Denies sore throat - *Cardiovascular Reports chest pain - *Respiratory Reports shortness of breath - *Gastrointestinal Denies abdominal pain - *Genitourinary Denies blood in urine - *Musculoskeletal Denies joint pain - Integumentary/Breasts Denies rash - *Neurologic Denies headache(s), Denies seizure-like activity - Psychiatric Denies anxiety Exam Vital signs and Labs for Last 24 Hours: Temp Pulse Resp BP Pulse Ox 98.3 F 98 H 16 119/83 97 06/22/18 11:43 06/22/18 11:43 06/22/18 11:43 06/22/18 11:43 06/22/18 11:43 Laboratory Results - last 24 hr 06/21/18 20:05: WBC 6.1, RBC 4.30 L, Hgb 14.3, Hct 41.3 L, MCV 96.2 H, MCH 33.2 H, MCHC 34.5, RDW 12.7, Plt Count 268, MPV 7.1 L, Neut % (Auto) 59.3, Lymph % (Auto) 30.3, [place] % (Auto) 6.0, Eos % (Auto) 3.8, Baso % (Auto) 0.6, Neut # (Auto) 3.6, Lymph # (Auto) 1.8, [place] # (Auto) 0.4, Eos # (Auto) 0.2, Baso # (Au to) 0.0 06/21/18 20:05: Sodium 135 L, Potassium 3.5, Chloride 98, Carbon Dioxide 27, Anion Gap 13.5, BUN 6 L, Creatinine 1.05, Estimated Creat Clear 98, Estimated GFR 72, Est GFR ( Amer) 87, Glucose 99, Calcium 9.3, Troponin I < 0.02 06/21/18 21:20: Urine Color Yellow, Urine Appearance Clear, Urine pH 6.0, Ur Specific [place] <= 1.005, Urine Protein Negative, Urine Glucose (UA) Negative, Urine Ketones Negative, Urine Blood Trace-i, Urine Nitrate Negative, Urine Bilirubin Negative, Urine Urobilinogen 0.2, Ur Leukocyte Esterase Negative, Urine RBC 5-10, Urine WBC 3-5, Ur Squamous Epith Cells Occasional, Urine Bacteria Trace 06/22/18 01:26: Troponin I < 0.02 06/22/18 04:26: Troponin I < 0.02 06/22/18 04:26: WBC 3.6 L D, RBC 3.99 L, Hgb 13.3 L, Hct 39.1 L, MCV 98.1 H, MCH 33.2 H, MCHC 33.9, RDW 12.7, Plt Count 223, MPV 7.1 L, Neut % (Auto) 79.0, Lymph % (Auto) 18.1, [place] % (Auto) 2.0, Eos % (Auto) 0.6, Baso % (Auto) 0.2, Neut # (Auto) 2.9, Lymph # (Auto) 0.7, [place] # (Auto) 0.1, Eos # (Auto) 0.0, Baso # (Auto) 0.0 04/24/19 04:26: Sodium 139, Potassium 4.0, Chloride 104, Carbon Dioxide 27, Anion Gap 12.0, BUN 9 D, Creatinine 1.03, Estimated Creat Clear 98, Estimated GFR 73, Est GFR ( Amer) 89, Glucose 158 H D, Calcium 8.7, Magnesium 2.0, Triglycerides 114, Cholesterol 132 L, LDL Cholesterol 73, VLDL Cholesterol 23, HDL Cholesterol 36, Cholesterol/HDL Ratio 3.7 H I & O for Last 24 hours: Intake & Output 06/20/18 06/21/18 06/22/18 06/23/18 11:59 11:59 11:59 11:59 Intake Total 1800 / 1800 Output Total 1350 / 1350 Balance 450 / 450 Weight 201 lb 3 oz - Constitutional no acute distress - *Routine HEENT Exam Head: Present: normocephalic Eye: Present: EOMI, PERRL ENT: Present: mucous membranes dry - *Routine Neck Exam Present: supple. Absent: JVD - *Routine Respiratory Exam Present: CTA bilaterally - *Routine Cardiovascular Exam Present: RRR, murmur, S4 - *Routine Abdominal Exam Present: soft - *Routine Extremities Exam Absent: calf tenderness - *Routine Skin Exam Present: intact - *Routine Neurological Exam Present: alert, oriented X3, CN II-XII intact - Routine Psychiatric Exam Present: normal affect Hospital Course Hospital Course: pt did well in hospital with no ectopy or chest pain and stable card enz - he was seen by card -coronary artery disease 2 hypertension 3 hyperlipidemia 4 COPD 5 tobacco user History of present illness: This is a 62-year-old gentleman who was admitted to the hospital with chest pain. The patient states that his chest pain had been going on for que roximately 3 days. States that this is a sharp pain in the left side of his chest. He states that it does not radiate. It was associated with shortness of breath and nausea. He states that this pain was about a 9 out of 10 at home. He states that since being in the hospital this pain has improved a lot. He denies any fever, chills, vomiting, diarrhea, PND or orthopnea. The patient is very adamant that he is ready to go home today. Chest pain was at rest and with exertion. Nothing worsened the chest pain and nothing helped to improve the chest pain. The patient did have a cardiac catheterization in June 2017. It did show some mild disease to his LAD. His circumflex artery had patent stents and mild disease. His right coronary artery also had some mild to moderate disease. His LVEDP was elevated at 30 mmHg. The patient does need long-acting nitrates and diuretics. The patient was admitted to the hospital with chest pain that have been going on for approximately 3 days. The patient has ruled out for an MA. He has had 3- troponins. He states that his chest pain has improved since being in the hospital and having Nitropaste in place. The patient was cathed less than a year ago at which time he had mild to moderate disease with patent stents. His LVEDP was elevated at that time. The patient does need medical management with long-acting nitrates and diuretics. 2. We will increase his Ranexa to thousand milligrams p.o. twice daily and start him on isosorbide mononitrate 30 mg daily. We will also increase his Lasix to 40 mg twice daily for diuresis. Will also increase aldactone to 25 mg twice a day as well. 3. CAD is present. However he has mild to moderate nonocclusive coronary artery disease. Long-acting nitrates have been started and adjusted. 4. His blood pressure is well controlled. 5. His LDL goal is less than 55. 6. Tobacco cessation is highly advised and counseled. 7. The patient is stable today from a cardiac standpoint for discharge home today once he has been started on long-acting nitrates and diuretics. The patient will need to follow-up in 1 to 2 weeks on an outpatient basis. Thank you for the opportunity to help participate in the care of this patient. Results Labs on day of discharge: Labs from last 24 hours 06/22/18 06/22/18 06/22/18 04:26 04:26 04:26 WBC 3.6 L D RBC 3.99 L Hgb 13.3 L Hct 39.1 L MCV 98.1 H MCH 33.2 H MCHC 33.9 RDW 12.7 Plt Count 223 MPV 7.1 L Neut % (Auto) 79.0 Lymph % (Auto) 18.1 [place] % (Auto) 2.0 Eos % (Auto) 0.6 Baso % (Auto) 0.2 Neut # (Auto) 2.9 Lymph # (Auto) 0.7 [place] # (Auto) 0.1 Eos # (Auto) 0.0 Baso # (Auto) 0.0 Sodium 139 Potassium 4.0 Chloride 104 Carbon Dioxide 27 Anion Gap 12.0 BUN 9 D Creatinine 1.03 Estimated Creat Clear 98 Estimated GFR 73 Est GFR ( Amer) 89 Glucose 158 H D Calcium 8.7 Magnesium 2.0 Troponin I < 0.02 Triglycerides 114 Cholesterol 132 L LDL Cholesterol 73 VLDL Cholesterol 23 HDL Cholesterol 36 Cholesterol/HDL Ratio 3.7 H Urine Color Urine Appearance Urine pH Ur Specific [place] Urine Protein Urine Glucose (UA) Urine Ketones Urine Blood Urine Nitrate Urine Bilirubin Urine Urobilinogen Ur Leukocyte Esterase Urine RBC Urine WBC Ur Squamous Epith Cells Urine Bacteria 06/22/18 06/21/18 06/21/18 01:26 21:20 20:05 WBC RBC Hgb Hct MCV MCH MCHC RDW Plt Count MPV Neut % (Auto) Lymph % (Auto) [place] % (Auto) Eos % (Auto) Baso % (Auto) Neut # (Auto) Lymph # (Auto) [place] # (Auto) Eos # (Auto) Baso # (Auto) Sodium 135 L Potassium 3.5 Chloride 98 Carbon Dioxide 27 Anion Gap 13.5 BUN 6 L Creatinine 1.05 Estimated Creat Clear 98 Estimated GFR 72 Est GFR ( Amer) 87 Glucose 99 Calcium 9.3 Magnesium Troponin I < 0.02 < 0.02 Triglycerides Cholesterol LDL Cholesterol VLDL Cholesterol HDL Cholesterol Cholesterol/HDL Ratio Urine Color Yellow Urine Appearance Clear Urine pH 6.0 Ur Specific [place] <= 1.005 Urine Protein Negative Urine Glucose (UA) Negative Urine Ketones Negative Urine Blood Trace-i Urine Nitrate Negative Urine Bilirubin Negative Urine Urobilinogen 0.2 Ur Leukocyte Esterase Negative Urine RBC 5-10 Urine WBC 3-5 Ur Squamous Epith Cells Occasional Urine Bacteria Trace 06/21/18 20:05 WBC 6.1 RBC 4.30 L Hgb 14.3 Hct 41.3 L MCV 96.2 H MCH 33.2 H MCHC 34.5 RDW 12.7 Plt Count 268 MPV 7.1 L Neut % (Auto) 59.3 Lymph % (Auto) 30.3 [place] % (Auto) 6.0 Eos % (Auto) 3.8 Baso % (Auto) 0.6 Neut # (Auto) 3.6 Lymph # (Auto) 1.8 [place] # (Auto) 0.4 Eos # (Auto) 0.2 Baso # (Auto) 0.0 Sodium Potassium Chloride Carbon Dioxide Anion Gap BUN Creatinine Estimated Creat Clear Estimated GFR Est GFR ( Amer) Glucose Calcium Magnesium Troponin I Triglycerides Cholesterol LDL Cholesterol VLDL Cholesterol HDL Cholesterol Cholesterol/HDL Ratio Urine Color Urine Appearance Urine pH Ur Specific [place] Urine Protein Urine Glucose (UA) Urine Ketones Urine Blood Urine Nitrate Urine Bilirubin Urine Urobilinogen Ur Leukocyte Esterase Urine RBC Urine WBC Ur Squamous Epith Cells Urine Bacteria DS: Diagnosis - Discharge Diagnosis (1) Angina pectoris Status: Acute (2) Diastolic dysfunction Status: Chronic (3) Dyspnea Status: Chronic (4) Tobacco dependence Status: Chronic (5) Carotid artery stenosis Status: Chronic (6) HLD (hyperlipidemia) Status: Chronic (7) HHD (hypertensive heart disease) Status: Chronic (8) CAD (coronary artery disease) Status: Chronic (9) COPD (chronic obstructive pulmonary disease) Status: Acute Discharge Medications - Medications for Discharge Home Medication List at Discharge: New Furosemide [Lasix 40mg tablet] 40 mg PO BIDL tablet Ranolazine [Ranexa 500mg ER tablet] 1,000 mg PO BID tab.er.12h Tizanidine HCl [Zanaflex 4mg tablet] 4 mg PO TIDP PRN tablet PRN Reason: muscle spasticity Spironolactone [Aldactone 25mg Tab] 25 mg PO BID tablet Isosorbide Mononitrate [Imdur 30mg ER tablet] 30 mg PO DAILY 30 Days #30 tab Continued pravastatin 40 mg tablet 40 mg PO QHS #90 tab trazodone 50 mg tablet 50 mg PO QHS PRN #90 tab PRN Reason: insomnia spironolactone 25 mg tablet 25 mg PO BID #60 tab ranolazine ER 1,000 mg tablet,extended release,12 hr 1,000 mg PO BID #60 tab isosorbide mononitrate ER 30 mg tablet,extended release 24 hr 30 mg PO DAILY #30 tab albuterol sulfate HFA 90 mcg/actuation aerosol inhaler 1 puff INHALATION Q4- 6H PRN #18 g PRN Reason: shortness of breath or wheezing propranolol ER 120 mg capsule,24 hr,extended release 120 mg PO QHS #30 cap furosemide 40 mg tablet 40 mg PO BID #60 tab Lisinopril [Prinivil 20mg Tablet] 20 mg PO DAILY Ergocalciferol (Vitamin D2) [Drisdol] 50,000 unit PO WEEKLY Clopidogrel Bisulfate [Plavix 75mg Tab] 75 mg PO DAILY
== END 2018-06-22 14:32 | disposition home or self-care (01) ==
LOC: 2ND 19:54 → ER 19:54 → 2ND 22:36
PROVIDERS: ADMIT Emergency Medicine; ATTEND Emergency Medicine
CPT/HCPCS: 36415; 71010; 71045; 80048; 80061; 81001; 83735; 84484; 85025; 93005; 96365; 96375; 99285; G0378

== ENCOUNTER 2018-06-27 18:53 | Observation (INO) ==
[2018-06-27 19:12] LABS: Basophils % 0.4 % (0.1-2.0); Eosinophils # 0.2 K/mm3 (0.0-0.4); Hematocrit 43.2 % (42.0-52.0); Lymphocytes # 1.6 K/mm3 (0.7-4.5); Lymphocytes % 20.9 % (10-50); Mean Corpuscular HGB Conc 34.6 g/dL (31.8-35.4); Mean Corpuscular Hemoglobin 33.4 pg (27.0-31.2); Mean Corpuscular Volume 96.7 fl (80-94); Monocytes # 0.5 K/mm3 (0.1-1.0); Monocytes % 6.8 % (1.7-9.3); Neutrophils # 5.2 K/mm3 (1.8-7.8); Platelet Count 321 K/mm3 (142-424); Red Blood Count 4.47 M/mm3 (4.60-6.20); White Blood Count 7.5 K/mm3 (4.8-10.8)
--- NOTE | 2018-06-27 19:18 | Emergency Department Note ---
ED Disposition Clinical Impression: Symptomatic hypotension, Chest pain, COPD (chronic obstructive pulmonary disease), CAD (coronary artery disease) Disposition: Admitted as Observation Condition on Discharge: Good Referrals: Godfrey Jhaveri MD [Primary Care Provider] - Time of Disposition: 20:46 - Critical Care Critical Care Time: No Attestation: On 06/27/18, the high probability of a clinically significant, sudden or life threatening deterioration of the following system(s) required my full and direct attention, intervention and personal management. The time I documented below is in addition to time spent performing reported procedures but includes the following listed in this critical care notation. Medical Decision Making - Medical Records Medical records reviewed: Yes: I reviewed the patient's medical records. - Eric Inquiry Pt receiving controlled substance: No Eric was queried for this patient: No Vital Signs: 06/27/18 18:56 Temperature 97.8 F Temperature Source Oral Pulse Rate [Right Brachial] 98 H Respiratory Rate 18 Blood Pressure [Right Arm] 156/76 H Blood Pressure Mean [Right Arm] 102 Blood Pressure Source [Right Arm] Automatic Cuff Blood Pressure Position [Right Arm] Sitting 02 Sat by Pulse Oximetry 100 Oxygen Delivery Method Room Air - Lab Data Lab results reviewed: Yes: I reviewed the patient's lab results. Lab Results 06/27/18 18:54: WBC 7.5, RBC 4.47 L, Hgb 15.0, Hct 43.2, MCV 96.7 H, MCH 33.4 H, MCHC 34.6, RDW 13.0, Plt Count 321, MPV 7.0 L, Neut % (Auto) 70.0, Lymph % (Auto ) 20.9, [place] % (Auto) 6.8, Eos % (Auto) 2.0, Baso % (Auto) 0.4, Neut # (Auto) 5.2, Lymph # (Auto) 1.6, [place] # (Auto) 0.5, Eos # (Auto) 0.2, Baso # (Auto) 0.0 06/27/18 18:54: Sodium 131 L, Potassium 3.3 L, Chloride 94 L, Carbon Dioxide 27, Anion Gap 13.3, BUN 8, Creatinine 1.09, Estimated Creat Clear 95, Estimated GFR 69, Est GFR ( Amer) 83, Glucose 110 H, Calcium 8.9, Troponin I < 0.02 06/27/18 18:54: B-Natriuretic Peptide 22 Result diagrams: 06/27/18 18:54 06/27/18 18:54 Orders (Tests/Meds): ED MEDICATIONS Generic Name Dose Route Start Last Admin Trade Name Jen PRN Reason Stop Dose Admin Sodium Chloride 500 mls @ 999 mls/hr 06/27/18 19:30 06/27/18 19:38 Sod Chlor 0.9% 500ml Bag IV 07/27/18 19:29 999 mls/hr .Q31M SALVATORE Administration ORDERS Category Date Time Status XR chest 2V Stat Exams 06/27/18 19:04 Taken - Physician Consults Physician Consulted: manuela Time: 20:44 Reason -: Pt condition Comment/Response: obs secondary to hypotension, will see in AM Additional Consult: Shakila Time: 20:45 Reason -: Admission Comment/Response: obs Chest Pain HPI - General Chief Complaint: Chest Pain Stated Complaint: chest pain Time Seen by Provider: 06/27/18 19:15 Mode of Arrival: EMS Source of Information: Patient Limitations: No Limitations Description of Symptoms (Recalled from ER Triage Doc. by RN): chest pain that began earlier this afternoon without any exertion; denies any additional issues; - History of Present Illness HPI narrative: recurrent episodes of sscp and weakness/difficulty walking. blood pressure is low on arrival. Denies new meds or long acting nitrates. States he has 15 stents, multi-vessels disease Last evaluate here within the week, obs and seen by MARLON. NO cath/no intervention - Related Data Home Medications Medication Instructions Recorded Confirmed Lisinopril [Prinivil 20mg Tablet] 20 mg PO DAILY 12/25/17 06/24/18 Clopidogrel Bisulfate [Plavix 75mg 75 mg PO DAILY 06/21/18 06/24/18 Tab] Ergocalciferol (Vitamin D2) 50,000 unit PO WEEKLY 06/21/18 06/24/18 [Drisdol] aspirin 81 mg tablet,delayed 81 mg PO DAILY 06/24/18 06/24/18 release Furosemide [Furosemide 40MG tAB] 20 mg PO DAILY PRN 06/27/18 06/27/18 Furosemide [Furosemide 40MG tAB] 40 mg PO DAILY 06/27/18 06/27/18 Spironolactone 25 mg PO DAILY 06/27/18 Previous Rx's Medication Instructions Recorded albuterol sulfate HFA 90 1 puff INHALATION Q4-6H PRN #18 g 02/27/18 mcg/actuation aerosol inhaler pravastatin 40 mg tablet 40 mg PO QHS #90 tab 05/24/18 trazodone 50 mg tablet 50 mg PO QHS PRN #90 tab 06/14/18 propranolol ER 120 mg capsule,24 120 mg PO QHS #30 cap 06/17/18 hr,extended release Isosorbide Mononitrate [Imdur 30mg 30 mg PO DAILY 30 Days #30 tab 06/22/18 ER tablet] ranolazine ER 1,000 mg 1,000 mg PO BID #60 tab 06/22/18 tablet,extended release,12 hr Allergies Allergy/AdvReac Type Severity Reaction Status Date / Time Iodinated Contrast Media - Allergy Unknown Verified 06/24/18 09:09 Oral and [Iodinated Contrast Media - IV Dye] [place] History - Hepatitis A Screen Drug use history?: No High risk sexual behaviors?: No History of sexually transmitted infection?: No Currently employed?: No Childcare worker?: No Do you have indoor plumbing?: Yes Do you have electricity?: Yes Attestation statement:: This patient has been screened for Hepatitis A risk factors. I have reviewed the patient's past medical history: Yes Medical History: Reports:: Cancer, Chronic Obstructive Pulmonary Disease (COPD), Coronary Artery Disease, Hyperlipidemia, Hypertension Denies:: Diabetes Mellitus Type 1, Diabetes Mellitus Type 2, Internal Pacemaker, MRSA, Seizures Other Surgeries: Yes: No Previous Surgery, Angiogram, Cancer Surgery, Cardiac Catheterization, Cholecystectomy, Coronary Stent, Other. 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) Fractures: No - Social History Educational Level: Completed High School Smoking Status: Never smoker Tobacco Type: cigarettes # Packs/Day (cigarettes): 1 Alcohol Intake: never Alcohol Intake Frequency:: other Substance Use Type: denies use Occupational Status: unemployed, retired Housing: apartment Household Members: other - Psychiatric History Expresses thoughts of harming self/others: None Suicide Plan Description: No Plan Family Hx:: Cancer, Hypertension, Stroke Comment: heart disease ROS Obtained: Yes All systems reviewed & no additional complaints - Constitutional Constitutional: Denies fever(s) - Eyes Eyes: Denies change in vision - Cardiovascular Cardiovascular: Reports chest pain, Reports chest pain at rest, Reports chest pain with activity, Denies leg pain with activity, Reports dyspnea, Reports dyspnea on exertion, Denies rapid heart rate, Denies slow heart rate - Respiratory Respiratory: Yes cough, Yes dyspnea, Yes dyspnea on exertion - Gastrointestinal Gastrointestingal: Reports: abdominal pain. Denies: nausea, vomiting - Musculoskeletal Musculoskeletal: Denies joint pain, Denies joint stiffness, Denies joint swelling - Integumentary/Breasts Skin/Breast: Reports rash, Reports skin pain - Neurologic Neurologic: Denies behavioral changes, Denies focal weakness - Hematologic/Lymphatic Henatologic/Lymphatic: Denies easy bleeding, Denies easy bruising Physical Exam - General General appearance: alert, in no apparent distress - Head Head exam: atraumatic, normocephalic, normal inspection - ENT ENT exam: Present: normal exam, normal oropharynx, mucous membranes moist, TM's normal bilaterally, normal external ear exam - Chest Chest inspection: Present: normal inspection, symmetric chest wall rise. Absent: tenderness - Respiratory Respiratory exam: Present: normal lung sounds bilaterally. Absent: respiratory distress - Cardiovascular Cardiovascular exam: Present: regular rate, normal rhythm. Absent: JVD - Abdominal Exam Abdominal exam: Present: soft, normal bowel sounds. Absent: distention, tenderness, guarding - Extremities Exam Extremities exam: Present: normal inspection, full ROM, normal capillary refill, other (except single digit partial amputation-remote). Absent: calf tenderness - Neurological Exam Neurological exam: Present: alert, oriented X3 - Psychiatric Psychiatric exam: Present: normal affect, normal mood
[2018-06-27 19:35] LABS: Anion Gap 13.3 mEq/L (5-15); Blood Urea Nitrogen 8 mg/dL (7-18); Calcium 8.9 mg/dL (8.5-10.1); Carbon Dioxide 27 mmol/L (21.0-32.0); Chloride 94 mmol/L (98-107); Glucose 110 mg/dL (74-106); Potassium 3.3 mmoL/L (3.5-5.1); Sodium 131 mmol/L (136-145)
--- NOTE | 2018-06-28 07:47 | Pharmacy Consult Notes ---
[facility] Pharmacy VTE Monitoring - Patient Demographics Admission date: 06/27/18 Report Date: 06/28/18 Time: 07:47 Allergies/Adverse Reactions: Patient Allergies Iodinated Contrast Media - Oral and [Iodinated Contrast Media - IV Dye] Allergy (Unknown, Verified 06/24/18 09:09) Height: 1.85 m Weight: 89.159 kg Patient Problems: Current Active Problems (Updated 06/27/18 @ 20:52 by Godfrey Gray MD) COPD (chronic obstructive pulmonary disease) (Acute) Symptomatic hypotension (Acute) Chest pain (Acute) CAD (coronary artery disease) (Chronic) - VTE Risk Labs: VTE Related Lab Results Hgb 15.0 g/dL (14.1-18.0) 06/27/18 18:54 Hct 43.2 % (42.0-52.0) 06/27/18 18:54 Plt Count 321 K/mm3 (142-424) 06/27/18 18:54 BUN 8 mg/dL (7-18) 06/27/18 18:54 Creatinine 1.09 mg/dL (0.70-1.30) 06/27/18 18:54 Estimated Creat Clear 95 mL/min (50-200) 06/27/18 18:54 Was VTE Risk Assessment Performed: Yes VTE Score: 6 VTE Risk Level: Moderate Risk - Prophylaxis VTE Prophylaxis Ordered?: Yes Types of VTE Prophylaxis: TEDS Knee High Location of Applied Device: Bilateral Lower Extremeties - VTE Diagnosis Confirmed Treatment or plan recommended: Continue Current Treatment
--- NOTE | 2018-06-28 08:07 | Consult Report ---
History of Present Illness Consult date: 06/28/18 Requesting physician: Godfrey Jhaveri Consult reason: chest pain Chief complaint: SOA, chest pain Additional Medical History:: 1. Coronary disease A. History of coronary artery stenting of unknown vessels several years ago by Dr. Desai per patient. B. [facility], 06/2017, ANGIOGRAPHIC RESULTS: 1. The left main artery normal 2. The left anterior descending artery is proximally normal with mid vessel 30% stenoses. 3. The circumflex artery is a nondominant vessel and has stents in the circumflex artery which extend into the first and second obtuse marginal artery and a bifurcating manner. Proximally there are 20% stenoses followed by a widely patent stent in the mid circumflex artery as well as both proximal limbs of the first and second obtuse marginal arteries. Distal to the stents are 30% nonflow limiting stenoses 4. The right coronary artery is a dominant vessel and has proximal 30% stenosis followed by a mostly eccentric 40% stenosis proximal to the RV marginal branch. 5. The [place] ventriculogram reveals normal 60% 6. The left ventricular end-diastolic pressure 30 mmHg IMPRESSION: 1. Coronary artery disease as described above 2. Normal ejection fraction 3. Elevated LVEDP consistent with diastolic dysfunction PLAN: 1. Continue medical management for ischemic heart disease 2. Patient would benefit from diuretics for the diastolic dysfunction 3. LDL less than 55 4. Risk factor modification 2. Hypertension A. Echo, 11/2017, 1. Mildly enlarged left atrium, normal left ventricular size, mild concentric left ventricular hypertrophy, visually estimated ejection fraction 55% with no regional wall motion abnormality, endocardial subsequent poorly visualized, grade 1 diastolic dysfunction seen without tissue Doppler evidence of raised left atrial pressure. 2. Mild mitral and tricuspid regurgitation 3. No significant pericardial effusion noted. 3. Hyperlipidemia 4. Tobacco use of 1.5 packs per day for most of his life. A. COPD 5. History of seizure disorder 6. History of CVA with LEFT leg weakness 7. Family history of coronary artery disease in both his father and younger brother. History of present illness: 62-year-old white male with history of coronary artery disease, COPD, hypertension and seizure disorder who was admitted through the emergency depa rtment last evening for chest pain shortness of breath. Patient relates significant diuresis overnight with improvement in his symptoms this a.m. Previously admitted 1 week ago for similar symptoms. Each time troponins returned normal with no evidence of acute coronary syndrome. Patient has a difficult time finding words to describe his discomfort and indicates that his estranged is better at describing his symptoms. He drinks several cups of coffee, tea and 2-3 sodas per day. BNP this admission is normal with no chest x-ray evidence of congestive heart failure. Patient states he is ready to go home. [facility] History Medical History: Reports:: Cancer, Chronic Obstructive Pulmonary Disease (COPD), Coronary Artery Disease, Hyperlipidemia, Hypertension Denies:: Diabetes Mellitus Type 1, Diabetes Mellitus Type 2, Internal Pacemaker, MRSA, Seizures *Have you ever received a pneumonia vaccine?: No *Have you received a flu vaccine this season?: Yes Other Surgeries: Yes: No Previous Surgery, Angiogram, Cancer Surgery, Cardiac Catheterization, Cholecystectomy, Coronary Stent, Other. 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) Fractures: No - *Social History Educational Level: Completed High School Smoking Status: Current every day smoker Tobacco Type: cigarettes # Packs/Day (cigarettes): 1 Alcohol Intake: never Alcohol Intake Frequency:: other Substance Use Type: denies use *Occupational Status:: unemployed, retired Housing: apartment Household Members: other *Travel in the last 8 weeks: None - Psychiatric History Expresses thoughts of harming self/others: None Suicide Plan Description: No Plan Family Hx:: Cancer, Hypertension, Stroke Meds Home Medications Medication Instructions Recorded Confirmed Type Lisinopril [Prinivil 20mg Tablet] 20 mg PO DAILY 12/25/17 06/27/18 History albuterol sulfate HFA 90 1 puff INHALATION Q4-6H PRN #18 g 02/27/18 06/27/18 Rx mcg/actuation aerosol inhaler pravastatin 40 mg tablet 40 mg PO QHS #90 tab 05/24/18 06/27/18 Rx trazodone 50 mg tablet 50 mg PO QHS PRN #90 tab 06/14/18 06/27/18 Rx Clopidogrel Bisulfate [Plavix 75mg 75 mg PO DAILY 06/21/18 06/27/18 History Tab] aspirin 81 mg tablet,delayed 81 mg PO DAILY 06/24/18 06/27/18 History release Furosemide [Furosemide 40MG tAB] 20 mg PO DAILY PRN 06/27/18 06/27/18 History Furosemide [Furosemide 40MG tAB] 40 mg PO DAILY 06/27/18 06/27/18 History Prasugrel HCl [Prasugrel 10mg 10 mg PO DAILY 06/27/18 06/27/18 History Tab] Propranolol HCl [Propranolol HCl 120 mg PO HS 06/27/18 06/27/18 History ER] Ranolazine [Ranexa 500mg ER tablet] 500 mg PO BID 06/27/18 06/27/18 History Ranolazine [Ranexa] 1,000 mg PO BID 06/27/18 06/27/18 History Spironolactone 25 mg PO DAILY 06/27/18 06/27/18 History Allergies Allergy/AdvReac Type Severity Reaction Status Date / Time Iodinated Contrast Media - Allergy Unknown Verified 06/24/18 09:09 Oral and [Iodinated Contrast Media - IV Dye] Review of Systems - *Cardiovascular Reports chest pain, Reports shortness of breath, Reports shortness of breath with activity - *Respiratory Reports shortness of breath, Denies cough, Denies wheezing - *Gastrointestinal Denies abdominal pain, Denies nausea - *Genitourinary Denies blood in urine - *Musculoskeletal Denies joint pain, Denies back pain - *Neurologic Denies behavioral changes, Denies localized weakness Exam Vital signs and Labs for Last 24 Hours: Temp Pulse Resp BP Pulse Ox 97.6 F 60 18 105/59 L 96 06/28/18 04:00 06/28/18 04:00 06/28/18 04:00 06/28/18 04:00 06/28/18 04:00 Laboratory Results - last 24 hr 06/27/18 18:54: WBC 7.5, RBC 4.47 L, Hgb 15.0, Hct 43.2, MCV 96.7 H, MCH 33.4 H, MCHC 34.6, RDW 13.0, Plt Count 321, MPV 7.0 L, Neut % (Auto) 70.0, Lymph % (Auto) 20.9, [place] % (Auto) 6.8, Eos % (Auto) 2.0, Baso % (Auto) 0.4, Neut # (Auto) 5.2, Lymph # (Auto) 1.6, [place] # (Auto) 0.5, Eos # (Auto) 0.2, Baso # (Auto) 0.0 06/27/18 18:54: Sodium 131 L, Potassium 3.3 L, Chloride 94 L, Carbon Dioxide 27, Anion Gap 13.3, BUN 8, Creatinine 1.09, Estimated Creat Clear 95, Estimated GFR 69, Est GFR ( Amer) 83, Glucose 110 H, Calcium 8.9, Troponin I < 0.02 06/27/18 18:54: B-Natriuretic Peptide 22 06/27/18 23:36: Troponin I < 0.02 06/28/18 02:40: Troponin I < 0.02 I & O for Last 24 hours: Intake & Output 06/25/18 06/26/18 06/27/18 06/28/18 11:59 11:59 11:59 11:59 Output Total 300 / 300 Balance -300 / -300 Weight 196 lb 9 oz - *Routine HEENT Exam Head: Present: normocephalic Eye: Present: EOMI, PERRL ENT: Present: mucous membranes moist - *Routine Neck Exam Present: supple. Absent: JVD, carotid bruit - *Routine Respiratory Exam Present: CTA bilaterally. Absent: accessory muscle use, rales, rhonchi, wheezes - *Routine Cardiovascular Exam Present: RRR. Absent: murmur, gallop, rubs - *Routine Abdominal Exam Present: soft. Absent: tenderness, distended, guarding - *Routine Extremities Exam Absent: edema, calf tenderness - *Routine Neurological Exam Present: alert, oriented X3, moving all extremities Assessment and Plan (1) Dyspnea Current visit: No Status: Chronic Qualifiers: Dyspnea type: dyspnea on exertion Qualified Code(s): R06.09 - Other forms of dyspnea Category: Medical Code(s): R06.00 - Dyspnea, unspecified (2) COPD (chronic obstructive pulmonary disease) Current visit: Yes Status: Acute Category: Medical Code(s): J44.9 - Chronic obstructive pulmonary disease, unspecified (3) Chest pain Current visit: Yes Status: Acute Category: Medical Code(s): R07.9 - Chest pain, unspecified (4) CAD (coronary artery disease) Current visit: Yes Status: Chronic Qualifiers: Category: Medical Code(s): I25.10 - Atherosclerotic heart disease of [place] coronary artery without angina pectoris (5) Diastolic dysfunction Current visit: No Status: Chronic Category: Medical Code(s): I51.9 - Heart disease, unspecified (6) Tobacco dependence Current visit: No Status: Chronic Category: Medical Code(s): F17.200 - Nicotine dependence, unspecified, uncomplicated - Assessment and plan all Dx Assessment and Plan for all problems:: 1. Chest pain and shortness of breath related to diastolic dysfunction with elevated left ventricular end-diastolic pressure noted on cardiac cath last year. Recommend increasing the patient's diuretic therapy and decreasing salt and carbonated beverage intake. Recommend Lasix 40 mg BID in addition to spironolactone 25 mg twice daily (compliance may be an issue). Continue propranolol 120 mg daily along with lisinopril 20 mg daily. Patient can be discharged home today with close outpatient follow-up later this week or early next week. 2. Coronary artery disease, clinically stable on aspirin 81 mg daily, Plavix 75 mg daily, isosorbide 30 mg daily and Ranexa 1000 mg BID 3. Hyperlipidemia, continue statin therapy 4. Follow up in one week.
[2018-06-28 08:17] LABS: Basophils % 0.3 % (0.1-2.0); Eosinophils # 0.2 K/mm3 (0.0-0.4); Eosinophils % 2.3 % (0.1-12.0); Hematocrit 42.9 % (42.0-52.0); Hemoglobin 14.8 g/dL (14.1-18.0); Lymphocytes # 1.7 K/mm3 (0.7-4.5); Lymphocytes % 21.2 % (10-50); Mean Corpuscular HGB Conc 34.5 g/dL (31.8-35.4); Mean Corpuscular Hemoglobin 33.5 pg (27.0-31.2); Mean Corpuscular Volume 96.9 fl (80-94); Mean Platelet Volume 7.5 fl (7.4-10.4); Monocytes # 0.7 K/mm3 (0.1-1.0); Monocytes % 8.5 % (1.7-9.3); Neutrophils # 5.5 K/mm3 (1.8-7.8); Neutrophils % 67.6 % (37.0-80.0); Platelet Count 280 K/mm3 (142-424); Red Blood Count 4.42 M/mm3 (4.60-6.20); Red Cell Distribution Width 12.9 % (11.5-17.5); White Blood Count 8.2 K/mm3 (4.8-10.8)
[2018-06-28 08:18] LABS: Anion Gap 13.5 mEq/L (5-15); Calcium 8.9 mg/dL (8.5-10.1)
[2018-06-28 08:19] LABS: Potassium 4.5 mmoL/L (3.5-5.1)
--- NOTE | 2018-06-28 09:00 | H&P/Discharge Summary ---
General - General Admission date:: 06/27/18 Discharge date: 06/28/18 *Admission Date: 06/27/18 *Chief complaint: chest pain *History of present illness: 62-year-old white male with history of coronary artery disease, COPD, hypertension and seizure disorder who was admitted through the emergency department last evening for chest pain shortness of breath. Patient relates significant diuresis overnight with improvement in his symptoms this a.m. Previously admitted 1 week ago for similar symptoms. Each time troponins returned normal with no evidence of acute coronary syndrome. Patient has a difficult time finding words to describe his discomfort and indicates that his estranged is better at describing his symptoms. He drinks several cups of coffee, tea and 2-3 sodas per day. BNP this admission is normal with no chest x-ray evidence of congestive heart failure. Patient states he is ready to go home [facility] History I have reviewed the patient's past medical history: Yes Medical History: Reports:: Cancer, Chronic Obstructive Pulmonary Disease (COPD), Coronary Artery Disease, Hyperlipidemia, Hypertension Denies:: Diabetes Mellitus Type 1, Diabetes Mellitus Type 2, Internal Pacemaker, MRSA, Seizures *Have you ever received a pneumonia vaccine?: No *Have you received a flu vaccine this season?: Yes Other Surgeries: Yes: No Previous Surgery, Angiogram, Cancer Surgery, Cardiac Catheterization, Cholecystectomy, Coronary Stent, Other. 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) Fractures: No - *Social History Educational Level: Completed High School Smoking Status: Current every day smoker Tobacco Type: cigarettes # Packs/Day (cigarettes): 1 Alcohol Intake: never Alcohol Intake Frequency:: other Substance Use Type: denies use *Occupational Status:: unemployed, retired Housing: apartment Household Members: other *Travel in the last 8 weeks: None - Psychiatric History Expresses thoughts of harming self/others: None Suicide Plan Description: No Plan Family Hx:: Cancer, Hypertension, Stroke Review of Systems - Review of Systems Review of systems:: pertinent systems reviewed and negative unless documented below - Constitutional Denies chills, Denies fever(s) - Eyes Denies change in vision - ENT Denies change in voice - *Cardiovascular Denies chest pain with activity - *Respiratory Denies excessive phlegm production - *Gastrointestinal Denies change in bowel habits - *Genitourinary Denies urinary urgency - *Musculoskeletal Denies neck pain - Integumentary/Breasts Denies rash - *Neurologic Denies behavioral changes, Denies localized weakness - Psychiatric Denies anxiety - Endocrine Denies flushing - Hematologic/Lymphatic Denies enlarged lymph nodes - Allergic/Immunologic Denies lip swelling Exam Vital signs and Labs for Last 24 Hours: Temp Pulse Resp BP Pulse Ox 97.4 F L 76 18 101/53 L 100 06/28/18 08:00 06/28/18 08:00 06/28/18 08:00 06/28/18 08:00 06/28/18 08:00 Laboratory Results - last 24 hr 06/27/18 18:54: WBC 7.5, RBC 4.47 L, Hgb 15.0, Hct 43.2, MCV 96.7 H, MCH 33.4 H, MCHC 34.6, RDW 13.0, Plt Count 321, MPV 7.0 L, Neut % (Auto) 70.0, Lymph % (Auto) 20.9, [place] % (Auto) 6.8, Eos % (Auto) 2.0, Baso % (Auto) 0.4, Neut # (Auto) 5.2, Lymph # (Auto) 1.6, [place] # (Auto) 0.5, Eos # (Auto) 0.2, Baso # (Auto) 0.0 06/27/18 18:54: Sodium 131 L, Potassium 3.3 L, Chloride 94 L, Carbon Dioxide 27, Anion Gap 13.3, BUN 8, Creatinine 1.09, Estimated Creat Clear 95, Estimated GFR 69, Est GFR ( Amer) 83, Glucose 110 H, Calcium 8.9, Troponin I < 0.02 06/27/18 18:54: B-Natriuretic Peptide 22 06/27/18 23:36: Troponin I < 0.02 06/28/18 02:40: Troponin I < 0.02 06/28/18 07:24: WBC 8.2, RBC 4.42 L, Hgb 14.8, Hct 42.9, MCV 96.9 H, MCH 33.5 H, MCHC 34.5, RDW 12.9, Plt Count 280, MPV 7.5, Neut % (Auto) 67.6, Lymph % (Auto) 21.2, [place] % (Auto) 8.5, Eos % (Auto) 2.3, Baso % (Auto) 0.3, Neut # (Auto) 5.5, Lymph # (Auto) 1.7, [place] # (Auto) 0.7, Eos # (Auto) 0.2, Baso # (Auto) 0.0 06/28/18 07:24: Sodium 138, Potassium 4.5 D, Chloride 100, Carbon Dioxide 29, Anion Gap 13.5, BUN 7, Creatinine 0.94, Estimated Creat Clear 97, Estimated GFR 81, Est GFR ( Amer) 98, Glucose 89, Calcium 8.9 I & O for Last 24 hours: Intake & Output 06/25/18 06/26/18 06/27/18 06/28/18 11:59 11:59 11:59 11:59 Intake Total 360 / 360 Output Total 300 / 300 Balance 60 Weight 196 lb 9 oz - Constitutional no acute distress - *Routine HEENT Exam Head: Present: normocephalic Eye: Present: PERRL ENT: Present: mucous membranes moist - *Routine Neck Exam Present: supple. Absent: lymphadenopathy - *Routine Respiratory Exam Present: CTA bilaterally - *Routine Cardiovascular Exam Present: RRR - *Routine Abdominal Exam Present: soft, normoactive bowel sounds. Absent: tenderness - *Routine Extremities Exam Present: full ROM. Absent: cyanosis, clubbing, edema - *Routine Skin Exam Present: warm. Absent: rash - *Routine Neurological Exam Present: alert, oriented X3 - Routine Psychiatric Exam Present: normal affect Hospital Course Hospital Course: chest xray:IMPRESSION: Chronic changes, no acute findings Cardiology consult recomends:1. Chest pain and shortness of breath related to diastolic dysfunction with elevated left ventricular end-diastolic pressure noted on cardiac cath last year. Recommend increasing the patient's diuretic therapy and decreasing salt and carbonated beverage intake. Recommend Lasix 40 mg BID in addition to spironolactone 25 mg twice daily (compliance may be an issue). Continue propranolol 120 mg daily along with lisinopril 20 mg daily. Patient can be discharged home today with close outpatient follow-up later this week or early next week. 2. Coronary artery disease, clinically stable on aspirin 81 mg daily, Plavix 75 mg daily, isosorbide 30 mg daily and Ranexa 1000 mg BID 3. Hyperlipidemia, continue statin therapy 4. Follow up in one week. Discharge we will follow-up with cardiology on and Dr. Jhaveri next week. Monitor blood pressure and heart rate at home Results Labs on day of discharge: Labs from last 24 hours 06/28/18 06/28/18 06/28/18 07:24 07:24 02:40 WBC 8.2 RBC 4.42 L Hgb 14.8 Hct 42.9 MCV 96.9 H MCH 33.5 H MCHC 34.5 RDW 12.9 Plt Count 280 MPV 7.5 Neut % (Auto) 67.6 Lymph % (Auto) 21.2 [place] % (Auto) 8.5 Eos % (Auto) 2.3 Baso % (Auto) 0.3 Neut # (Auto) 5.5 Lymph # (Auto) 1.7 [place] # (Auto) 0.7 Eos # (Auto) 0.2 Baso # (Auto) 0.0 Sodium 138 Potassium 4.5 D Chloride 100 Carbon Dioxide 29 Anion Gap 13.5 BUN 7 Creatinine 0.94 Estimated Creat Clear 97 Estimated GFR 81 Est GFR ( Amer) 98 Glucose 89 Calcium 8.9 Troponin I < 0.02 B-Natriuretic Peptide 06/27/18 06/27/18 06/27/18 23:36 18:54 18:54 WBC RBC Hgb Hct MCV MCH MCHC RDW Plt Count MPV Neut % (Auto) Lymph % (Auto) [place] % (Auto) Eos % (Auto) Baso % (Auto) Neut # (Auto) Lymph # (Auto) [place] # (Auto) Eos # (Auto) Baso # (Auto) Sodium 131 L Potassium 3.3 L Chloride 94 L Carbon Dioxide 27 Anion Gap 13.3 BUN 8 Creatinine 1.09 Estimated Creat Clear 95 Estimated GFR 69 Est GFR ( Amer) 83 Glucose 110 H Calcium 8.9 Troponin I < 0.02 < 0.02 B-Natriuretic Peptide 22 06/27/18 18:54 WBC 7.5 RBC 4.47 L Hgb 15.0 Hct 43.2 MCV 96.7 H MCH 33.4 H MCHC 34.6 RDW 13.0 Plt Count 321 MPV 7.0 L Neut % (Auto) 70.0 Lymph % (Auto) 20.9 [place] % (Auto) 6.8 Eos % (Auto) 2.0 Baso % (Auto) 0.4 Neut # (Auto) 5.2 Lymph # (Auto) 1.6 [place] # (Auto) 0.5 Eos # (Auto) 0.2 Baso # (Auto) 0.0 Sodium Potassium Chloride Carbon Dioxide Anion Gap BUN Creatinine Estimated Creat Clear Estimated GFR Est GFR ( Amer) Glucose Calcium Troponin I B-Natriuretic Peptide - Additional Comments Rounded with Dr. Jhaveri all orders per Shakila DS: Diagnosis - Discharge Diagnosis (1) Dyspnea Status: Chronic (2) COPD (chronic obstructive pulmonary disease) Status: Acute (3) Chest pain Status: Acute (4) CAD (coronary artery disease) Status: Chronic (5) Diastolic dysfunction Status: Chronic (6) Tobacco dependence Status: Chronic Discharge Medications - Medications for Discharge Home Medication List at Discharge: New Acetaminophen [Acetaminophen 325mg tab] 650 mg PO Q4HP PRN tablet PRN Reason: As Needed For Fever Or Pain Spironolactone [Aldactone 25mg Tab] 25 mg PO BID 30 Days #60 tab Isosorbide Mononitrate [Imdur 30mg ER tablet] 30 mg PO DAILY 30 Days #30 tab Furosemide [Lasix 40mg tablet] 40 mg PO BID 30 Days #60 tab Propranolol Hcl [Propranolol Hcl Er] 120 mg PO HS 30 Days #30 Ranolazine [Ranexa] 1,000 mg PO BID 30 Days #60 Pravastatin Sodium [Pravachol 40mg Tablet] 40 mg PO HS tablet Continued albuterol sulfate HFA 90 mcg/actuation aerosol inhaler 1 puff INHALATION Q4- 6H PRN #18 g PRN Reason: shortness of breath or wheezing aspirin 81 mg tablet,delayed release 81 mg PO DAILY Lisinopril [Prinivil 20mg Tablet] 20 mg PO DAILY Clopidogrel Bisulfate [Plavix 75mg Tab] 75 mg PO DAILY Spironolactone 25 mg PO BID Propranolol HCl [Propranolol HCl ER] 120 mg PO HS Isosorbide Mononitrate [Imdur 30mg ER tablet] 30 mg PO DAILY Trazodone HCl 50 mg PO HS Pravastatin Sodium [Pravachol] 40 mg PO HS Ranolazine [Ranexa] 1,000 mg PO BID Discontinued Furosemide [Furosemide 40MG tAB] 20 mg PO DAILY PRN PRN Reason: fluid Furosemide [Furosemide 40MG tAB] 40 mg PO DAILY Disposition Disposition: Home, Self-Care
== END 2018-06-28 10:00 | disposition home or self-care (01) ==
LOC: 2ND 18:53 → ER 18:53 → 2ND 21:53
PROVIDERS: ADMIT Emergency Medicine; ATTEND Emergency Medicine
CPT/HCPCS: 36415; 71020; 71046; 80048; 83880; 84484; 85025; 93005; 96365; 99284; G0378

== ENCOUNTER 2018-07-17 11:52 | Observation (INO) | payer MEDICARE, OTHER, SELFPAY ==
[2018-07-17] VITALS (12 sets, daily range): BP systolic 84–123; BP diastolic 48–68; PULSE 60–100; RESP 16–22; TEMP 36.4–36.9; O2SAT 95–99; BMI 27.7; BMI 25.7
--- NOTE | 2018-07-17 12:03 | HMH.EDGENADL ---
ED Disposition Clinical Impression: Dizziness, Weakness, Shakiness, Memory loss, Sleep disturbance Hypotension Qualifiers: Hypotension type: unspecified hypotension type Qualified Code(s): I95.9 - Hypotension, unspecified Disposition: Admitted as Observation Condition on Discharge: Fair Referrals: Godfrey Jhaveri MD [Primary Care Provider] - - Critical Care Critical Care Time: Yes Attestation: On 07/17/18, the high probability of a clinically significant, sudden or life threatening deterioration of the following system(s) required my full and direct attention, intervention and personal management. The time I documented below is in addition to time spent performing reported procedures but includes the following listed in this critical care notation. Total Critical Care Time: 30 Vital system(s) involved:: Circulatory Failure My critical care processes included: Assessment & monitoring of V/S, Initial and Re-exams, Data Review/Interpretation, Coordinating Care, Medication Orders and management, Documentation Medical Decision Making - Eric Inquiry Pt receiving controlled substance: No Vital Signs: 07/17/18 11:59 07/17/18 12:23 07/17/18 12:30 Temperature 98.1 F Temperature Source Oral Pulse Rate [Left Brachial] 98 H 78 Respiratory Rate 22 18 Blood Pressure [Left Arm] 98/68 L 84/62 L 84/58 L Blood Pressure Mean [Left Arm] 78 69 66 Blood Pressure Source [Left Arm] Automatic Cuff Manual Cuff/ Auscultation Automatic Cuff Blood Pressure Position [Left Arm] Sitting Sitting 02 Sat by Pulse Oximetry 95 98 Oxygen Delivery Method Room Air Room Air - Lab Data Lab Results 07/17/18 12:05: WBC 5.1, RBC 4.31 L, Hgb 14.2, Hct 40.8 L, MCV 94.7 H, MCH 33.0 H, MCHC 34.8, RDW 12.5, Plt Count 199, MPV 7.1 L, Neut % (Auto) 66.9, Lymph % (Auto) 21.9, [place] % (Auto) 8.5, Eos % (Auto) 2.3, Baso % (Auto) 0.4, Neut # (Auto) 3.4, Lymph # (Auto) 1.1, [place] # (Auto) 0.4, Eos # (Auto) 0.1, Baso # (Auto) 0.0 07/17/18 12:05: Sodium 127 L, Potassium 3.9, Chloride 90 L, Carbon Dioxide 26, Anion Gap 14.9, BUN 14, Creatinine 1.39 H, Estimated Creat Clear 74, Estimated GFR 52 L, Est GFR ( Amer) 63, Glucose 98, Calcium 8.9, Total Bilirubin 0.4, AST 13 L, ALT 25, Alkaline Phosphatase 74, Troponin I < 0.02, Total Protein 8.1, Albumin 4.1, Globulin 4.0 H, Albumin/Globulin Ratio 1.0 L Result diagrams: 07/17/18 12:05 07/17/18 12:05 Orders (Tests/Meds): ED MEDICATIONS Discontinued Medications Generic Name Dose Route Start Last Admin Trade Name Freq PRN Reason Stop Dose Admin Sodium Chloride 1,000 ml 07/17/18 12:21 07/17/18 12:30 Sod Chlor 0.9% 1000ml Bag IV 07/17/18 12:22 1,000 ml BOLUS ONE Administration ORDERS Category Date Time Status 12-lead EKG Request [ECG Request by /Herbie] Stat Y 07/17/18 12:05 Ordered - ECG Data Tracing #1 EKG interpreted by Hola French MD: Rhythm: sinus Rate: 98 [place]: normal Ectopy: none Conduction: Right bundle branch block ST Segment Changes: none T Wave Changes: none Q Waves: inferior Poor R wave progression Consistent with old inferior lateral injury Prior electrocardiagrams reviewed. No change from prior tracings. Baseline artifact and wander present - Physician Consults Physician Consulted: Shakila Time: 13:00 Reason -: Admission Comment/Response: Agrees to admit the patient to the hospital. We discussed the patient's clinical information, including history, exam, laboratory and radiology results and ED course. Per hospital procedure, I will write temporary bridge inpatient orders on the patient. Specific orders requested by the admitting physician: IVF, serial cardiac enzymes General Adult HPI - General Stated complaint: Weak/Shaky Time Seen by Provider: 07/17/18 12:15 - History of Present Illness HPI narrative: Complains of feeling weak, shaky, dizzy, memory loss, poor sleep, poor appetite. Symptoms have been going on for a
--- NOTE | 2018-07-17 12:08 | PC.NURSE ---
pt remained in chair per his request
[2018-07-17 12:13] LABS: Basophils % 0.4 % (0.1-2.0); Eosinophils # 0.1 K/mm3 (0.0-0.4); Eosinophils % 2.3 % (0.1-12.0); Hematocrit 40.8 % (42.0-52.0); Hemoglobin 14.2 g/dL (14.1-18.0); Lymphocytes # 1.1 K/mm3 (0.7-4.5); Lymphocytes % 21.9 % (10-50); Mean Corpuscular HGB Conc 34.8 g/dL (31.8-35.4); Mean Corpuscular Volume 94.7 fl (80-94); Mean Platelet Volume 7.1 fl (7.4-10.4); Monocytes # 0.4 K/mm3 (0.1-1.0); Monocytes % 8.5 % (1.7-9.3); Neutrophils # 3.4 K/mm3 (1.8-7.8); Neutrophils % 66.9 % (37.0-80.0); Platelet Count 199 K/mm3 (142-424); Red Blood Count 4.31 M/mm3 (4.60-6.20); Red Cell Distribution Width 12.5 % (11.5-17.5); White Blood Count 5.1 K/mm3 (4.8-10.8)
--- NOTE | 2018-07-17 12:21 | PC.NURSE ---
AJ ALFARO at bedside.
[2018-07-17 12:28] LABS: Alanine Aminotransferase 25 U/L (12-78); Albumin Level 4.1 gm/dL (3.4-5.0); Alkaline Phosphatase 74 U/L (46-116); Anion Gap 14.9 mEq/L (5-15); Aspartate Amino Transferase 13 U/L (15-37); Bilirubin,Total 0.4 mg/dL (0.2-1.0); Blood Urea Nitrogen 14 mg/dL (7-18); Calcium 8.9 mg/dL (8.5-10.1); Carbon Dioxide 26 mmol/L (21.0-32.0); Chloride 90 mmol/L (98-107); Creatinine Clearance Estimated 74 mL/min (50-200); Creatinine,Serum 1.39 mg/dL (0.70-1.30); Estimated Glomerular Filt Rate 52 ml/min (>60); GFR (African American) 63 ML/MIN (>60); Glucose 98 mg/dL (74-106); Potassium 3.9 mmoL/L (3.5-5.1); Sodium 127 mmol/L (136-145); Total Protein,Serum 8.1 gm/dL (6.4-8.2); Troponin I < 0.02 ng/ml (0.00-0.06)
--- NOTE | 2018-07-17 12:58 | PC.NURSE ---
Dr. French is speaking to Dr. Jhaveri regarding the pt.
--- NOTE | 2018-07-17 12:59 | PC.NURSE ---
dr talking to dr kline @ this time
--- NOTE | 2018-07-17 13:01 | PC.NURSE ---
Called visiting housekeeper to let them know pt is being admitted. She said she will call back shortly with a bed.
--- NOTE | 2018-07-17 13:02 | PC.NURSE ---
Pt is going to room 212 per house officer. Called admissions to let them know.
--- NOTE | 2018-07-17 13:09 | PC.NURSE ---
Called dietary for a tray.
--- NOTE | 2018-07-17 13:35 | PC.NURSE ---
Assisted pt to use the urinal.
--- NOTE | 2018-07-17 14:06 | HMH.PHAVTE ---
[facility] Pharmacy VTE Monitoring - Patient Demographics Admission date: 07/17/18 Report Date: 07/17/18 Time: 14:06 Allergies/Adverse Reactions: Patient Allergies Iodinated Contrast Media - Oral and [Iodinated Contrast Media - IV Dye] Allergy (Unknown, Verified 07/14/18 09:29) Height: 1.85 m Weight: 95.254 kg Patient Problems: Current Active Problems (Updated 07/17/18 @ 13:02 by Hola French MD) Hypotension (Acute) Dizziness (Acute) Weakness (Acute) Shakiness (Acute) Memory loss (Acute) Sleep disturbance (Acute) - VTE Risk Labs: VTE Related Lab Results Hgb 14.2 g/dL (14.1-18.0) 07/17/18 12:05 Hct 40.8 % (42.0-52.0) L 07/17/18 12:05 Plt Count 199 K/mm3 (142-424) 07/17/18 12:05 BUN 14 mg/dL (7-18) 07/17/18 12:05 Creatinine 1.39 mg/dL (0.70-1.30) H 07/17/18 12:05 Estimated Creat Clear 74 mL/min (50-200) 07/17/18 12:05 - Prophylaxis VTE Prophylaxis Ordered?: Yes Types of VTE Prophylaxis: TEDS Knee High Location of Applied Device: Bilateral Lower Extremeties - VTE Diagnosis Confirmed Treatment or plan recommended: Continue Current Treatment
[2018-07-17 17:15] LABS: Troponin I < 0.02 ng/ml (0.00-0.06)
--- NOTE | 2018-07-17 18:57 | PC.NURSE ---
PATIENT A&OX4, LUNGS DIMINSHED, PULSES EQUAL, LINEMAN A CLASS AND PULLS UNEQUAL, LEFT SIDE WEAKER. PATIENT AMBULATED 2X IN ROOM WITH CANE. PATIENT SCOOTS TO WALK, UNSTEADY GAIT. PATIENT'S ARMS SHAKE MAKING IT HARD FOR HIM TO USE THE URINAL WITHOUT MAKING A MESS. RN REASSURED HIM THAT IT IS NOT A PROBLEM AND WE WILL TAKE CARE OF HIM, PATIENT BECOMES FRUSTRATED WHEN HE MAKES A MESS. PATIENT AND EX ADVISED TO BRING IN HOME MEDS, RN EXPLAINED COST IF HIS MEDICATIONS ARE NOT BROUGHT IN. EX STATED SHE WOULD BRING THEM IN THE AM. NO NEW NEEDS OR CONCERNS AT THIS TIME.
[2018-07-17 19:44] LABS: Troponin I < 0.02 ng/ml (0.00-0.06)
--- NOTE | 2018-07-17 23:37 | HMH.HP ---
*Admission Date: 07/17/18 *Chief complaint: weakness *History of present illness: this wm presented to the ed with reported weakness plains of feeling weak, shaky, dizzy, memory loss, poor sleep, poor appetite. Symptoms have been going on for a couple of weeks. Seen by me in the emergency department on 07/06/2018 for chest pain as well as weakness. He was hypotensive. He was seen by cardiology in the emergency room. Arrangements were made for admission, but the patient signed out from the emergency department because he was tired of waiting for an inpatient bed. He returned to the emergency department 2 days later because of dizziness and had an extensive work-up including CT scan of the head. Diagnosed with vertigo and started on meclizine. Was seen by primary care provider on 07/14/2018 for the same complaints, states he was going to be referred to neurology and PCP was going to make appointment for this. Symptoms persist, so called Dr. Jhaveri today and was advised to come back to the emergency room. States he also had 2 episodes of vomiting last night. No abdominal pain, chest pain, or diarrhea. No fever to his knowledge. Denies any recent changes in medicati [facility] History I have reviewed the patient's past medical history: Yes Medical History: Reports:: Cancer, Chronic Obstructive Pulmonary Disease (COPD), Congenital Heart Disease, Coronary Artery Disease, Hyperlipidemia, Hypertension Denies:: Diabetes Mellitus Type 1, Diabetes Mellitus Type 2, Internal Pacemaker, MRSA, Seizures *Have you ever received a pneumonia vaccine?: No *Have you received a flu vaccine this season?: Yes Other Medical History: Reports: Arthritis Other Surgeries: Yes: No Previous Surgery, Angiogram, Cancer Surgery, Cardiac Catheterization, Cholecystectomy, Coronary Stent, Other. No: Pacemaker Amputation: No Fractures: No - *Social History Educational Level: Completed High School Smoking Status: Current every day smoker Tobacco Type: cigarettes # Packs/Day (cigarettes): 1 Alcohol Intake: former Alcohol Intake Frequency:: other Substance Use Type: denies use *Occupational Status:: unemployed, retired Housing: house Household Members: other *Travel in the last 8 weeks: None - Psychiatric History Expresses thoughts of harming self/others: None Suicide Plan Description: No Plan Family Hx:: Cancer, Hypertension, Stroke Review of Systems - Review of Systems Review of systems:: pertinent systems reviewed and negative unless documented below - Constitutional Reports weakness, Denies fever(s) - Eyes Reports change in vision - ENT Denies change in voice - *Cardiovascular Denies chest pain - *Respiratory Denies cough - *Gastrointestinal Denies abdominal pain - *Genitourinary Denies blood in urine - *Musculoskeletal Denies joint pain - Integumentary/Breasts Denies rash - *Neurologic Reports dizziness, Reports memory loss, Reports tremor(s), Reports weakness - Psychiatric Reports anxiety Meds Home Medications Medication Instructions Recorded Confirmed Type Lisinopril [Prinivil 20mg Tablet] 20 mg PO DAILY 12/25/17 07/17/18 History albuterol sulfate HFA 90 1 puff INHALATION Q4-6H PRN #18 g 02/27/18 07/17/18 Rx mcg/actuation aerosol inhaler Clopidogrel Bisulfate [Plavix 75mg 75 mg PO DAILY 06/21/18 07/17/18 History Tab] aspirin 81 mg tablet,delayed 81 mg PO DAILY 06/24/18 07/17/18 History release Propranolol HCl [Propranolol HCl 120 mg PO HS 06/27/18 07/17/18 History ER] Ranolazine [Ranexa] 1,000 mg PO BID 06/27/18 07/17/18 History Spironolactone 25 mg PO BID 06/27/18 07/17/18 History Acetaminophen [Acetaminophen 325mg 650 mg PO Q4HP PRN tab 06/28/18 07/17/18 Rx tab] Isosorbide Mononitrate [Imdur 30mg 30 mg PO DAILY 06/28/18 07/17/18 History ER tablet] Pravastatin Sodium [Pravachol] 40 mg PO HS 06/28/18 07/17/18 History Trazodone HCl 50 mg PO HS 06/28/18 07/17/18 History Furosemide [Lasix 40
[2018-07-18] VITALS: BP 120/68; PULSE 63; PULSE 80; RESP 18; TEMP 36.7; O2SAT 97
[2018-07-18 03:57] VITALS: BP 147/88; PULSE 75; RESP 18; TEMP 36.4; O2SAT 97
[2018-07-18 04:00] VITALS: PULSE 70
--- NOTE | 2018-07-18 04:00 | PC.NURSE ---
Pt has rested most of shift w/ no complaints voiced. Remains on room air. Requires assistance x1 to bathroom. Pt has had 2 loose stools since being admitted, per protocol stool culture ordered. Pt has been placed in contact enteric precautions w/ appropriate signs on door. Pt reports to staff that he is here d/t weakness and his memory is bad . Upon assessment pt was alert to self and place but was unable to tell staff the correct year/date. Continues to be in NSR w/ BBB on teley. Refuses TEDS. #20 @ RAC w/ NS @ 100 mls/hr. VSS. Will continue to monitor.
[2018-07-18 07:31] VITALS: O2SAT 97
[2018-07-18 08:00] VITALS: BP 114/71; PULSE 60; PULSE 76; RESP 20; TEMP 36.9; O2SAT 98
[2018-07-18 08:17] LABS: Microscopic, Urine URINE MICROSCOPIC (MICROSCOPIC)
[2018-07-18 08:19] LABS: Appearance,Urine CLEAR (Clear); Bilirubin,Urine Negative (Negative); Blood, Urine Negative (Negative); Color,Urine YELLOW (Yellow); Glucose,Urine (UA) Negative (Negative); Ketones,Urine Negative (Negative); Leukocyte Esterase,Urine Negative (Negative); Nitrate,Urine Negative (Negative); PH,Urine 7.5 (5.0-8.5); Protein,Urine Negative (Negative); Urobilinogen,Urine 0.2 EU/dl (0.2)
[2018-07-18 08:25] LABS: Bacteria,Urine Trace /lpf; Squamous Epithelial Cell,Urine Occasional #/hpf (0-5); WBC,Urine Occasional #/hpf (0-3)
[2018-07-18 08:37] LABS: Basophils % 0.4 % (0.1-2.0); Eosinophils # 0.2 K/mm3 (0.0-0.4); Eosinophils % 3.5 % (0.1-12.0); Hemoglobin 13.5 g/dL (14.1-18.0); Lymphocytes # 0.8 K/mm3 (0.7-4.5); Lymphocytes % 15.8 % (10-50); Mean Corpuscular HGB Conc 34.7 g/dL (31.8-35.4); Mean Corpuscular Hemoglobin 33.4 pg (27.0-31.2); Mean Corpuscular Volume 96.4 fl (80-94); Mean Platelet Volume 7.3 fl (7.4-10.4); Monocytes # 0.3 K/mm3 (0.1-1.0); Monocytes % 5.6 % (1.7-9.3); Neutrophils # 3.6 K/mm3 (1.8-7.8); Neutrophils % 74.6 % (37.0-80.0); Platelet Count 166 K/mm3 (142-424); Red Blood Count 4.05 M/mm3 (4.60-6.20); Red Cell Distribution Width 12.6 % (11.5-17.5); White Blood Count 4.9 K/mm3 (4.8-10.8)
[2018-07-18 08:47] LABS: Anion Gap 8.9 mEq/L (5-15); Blood Urea Nitrogen 6 mg/dL (7-18); Calcium 8.5 mg/dL (8.5-10.1); Carbon Dioxide 27 mmol/L (21.0-32.0); Chloride 98 mmol/L (98-107); Creatinine Clearance Estimated 96 mL/min (50-200); Creatinine,Serum 0.89 mg/dL (0.70-1.30); Estimated Glomerular Filt Rate 87 ml/min (>60); GFR (African American) 105 ML/MIN (>60); Glucose 89 mg/dL (74-106); Potassium 4.2 mmoL/L (3.5-5.1); Sodium 134 mmol/L (136-145)
[2018-07-18 08:58] LABS: T4 (Thyroxine) 8.2 ug/dl (4.7-13.3); Thyroid Stimulating Hormone 0.94 uIU/ml (0.358-3.740)
--- NOTE | 2018-07-18 08:59 | HMH.PHAINT ---
HOME MEDICATIONS RECONCILED FROM DR RAMIREZ'S OFFICE NOTE AND RX BOTTLES.
[2018-07-18 11:14] VITALS: BP 113/65; PULSE 71; RESP 18; TEMP 36.7; O2SAT 99
--- NOTE | 2018-07-18 12:25 | HMH.DCSUM ---
General - General Admission date:: 07/17/18 Discharge date: 07/18/18 HPI HPI: this wm presented to the ed with reported weakness plains of feeling weak, shaky, dizzy, memory loss, poor sleep, poor appetite. Symptoms have been going on for a couple of weeks. Seen by me in the emergency department on 07/06/2018 for chest pain as well as weakness. He was hypotensive. He was seen by cardiology in the emergency room. Arrangements were made for admission, but the patient signed out from the emergency department because he was tired of waiting for an inpatient bed. He returned to the emergency department 2 days later because of dizziness and had an extensive work-up including CT scan of the head. Diagnosed with vertigo and started on meclizine. Was seen by primary care provider on 07/14/2018 for the same complaints, states he was going to be referred to neurology and PCP was going to make appointment for this. Symptoms persist, so called Dr. Jhaveri today and was advised to come back to the emergency room. States he also had 2 episodes of vomiting last night. No abdominal pain, chest pain, or diarrhea. No fever to his knowledge. Denies any recent changes in medicati Hospital Course Hospital Course: pt has did well with ivf and labs have remained stable - will d/c for close follow up and adjust meds - Objective Vital signs: Temp Pulse Resp BP Pulse Ox 98.0 F 71 18 113/65 99 07/18/18 11:14 07/18/18 11:14 07/18/18 11:14 07/18/18 11:14 07/18/18 11:14 no acute distress - *Routine HEENT Exam Head: Present: normocephalic Eye: Present: EOMI, PERRL ENT: Present: mucous membranes dry - *Routine Neck Exam Present: supple - *Routine Respiratory Exam Present: decreased breath sounds - *Routine Cardiovascular Exam Present: RRR, murmur - *Routine Abdominal Exam Present: soft - *Routine Extremities Exam Present: edema - *Routine Skin Exam Present: intact - *Routine Neurological Exam Present: alert, oriented X3, CN II-XII intact - Routine Psychiatric Exam Present: normal affect Results Labs on day of discharge: Labs from last 24 hours 07/18/18 07/18/18 07/18/18 08:20 08:20 08:20 WBC 4.9 RBC 4.05 L Hgb 13.5 L Hct 39.0 L MCV 96.4 H MCH 33.4 H MCHC 34.7 RDW 12.6 Plt Count 166 MPV 7.3 L Neut % (Auto) 74.6 Lymph % (Auto) 15.8 [place] % (Auto) 5.6 Eos % (Auto) 3.5 Baso % (Auto) 0.4 Neut # (Auto) 3.6 Lymph # (Auto) 0.8 [place] # (Auto) 0.3 Eos # (Auto) 0.2 Baso # (Auto) 0.0 Sodium 134 L Potassium 4.2 Chloride 98 Carbon Dioxide 27 Anion Gap 8.9 BUN 6 L D Creatinine 0.89 D Estimated Creat Clear 96 Estimated GFR 87 Est GFR ( Amer) 105 D Glucose 89 Calcium 8.5 Total Bilirubin AST ALT Alkaline Phosphatase Troponin I Total Protein Albumin Globulin Albumin/Globulin Ratio TSH 0.94 Thyroxine (T4) 8.2 Urine Color Urine Appearance Urine pH Ur Specific [place] Urine Protein Urine Glucose (UA) Urine Ketones Urine Blood Urine Nitrate Urine Bilirubin Urine Urobilinogen Ur Leukocyte Esterase Urine WBC Ur Squamous Epith Cells Urine Bacteria 07/18/18 07/17/18 07/17/18 08:00 19:20 16:40 WBC RBC Hgb Hct MCV MCH MCHC RDW Plt Count MPV Neut % (Auto) Lymph % (Auto) [place] % (Auto) Eos % (Auto) Baso % (Auto) Neut # (Auto) Lymph # (Auto) [place] # (Auto) Eos # (Auto) Baso # (Auto) Sodium Potassium Chloride Carbon Dioxide Anion Gap BUN Creatinine Estimated Creat Clear Estimated GFR Est GFR ( Amer) Glucose Calcium Total Bilirubin AST ALT Alkaline Phosphatase Troponin I < 0.02 < 0.02 Total Protein Albumin Globulin Albumin/Globulin Ratio TSH
--- NOTE | 2018-07-18 12:45 | P.DS_ITS ---
General - General Admission date:: 07/17/18 Discharge date: 07/18/18 HPI HPI: this wm presented to the ed with reported weakness [place] of feeling weak, shaky, dizzy, memory loss, poor sleep, poor appetite. Symptoms have been going on for a couple of weeks. Seen by me in the emergency department on 07/06/2018 for chest pain as well as weakness. He was hypotensive. He was seen by cardiology in the emergency room. Arrangements were made for admission, but the patient signed out from the emergency department because he was tired of waiting for an inpatient bed. He returned to the emergency department 2 days later because of dizziness and had an extensive work-up including CT scan of the head. Diagnosed with vertigo and started on meclizine. Was seen by primary care provider on 07/14/2018 for the same complaints, states he was going to be referred to neurology and PCP was going to make appointment for this. Symptoms persist, so called Dr. Jhaveri today and was advised to come back to the emergency room. States he also had 2 episodes of vomiting last night. No abdominal pain, chest pain, or diarrhea. No fever to his knowledge. Denies any recent changes in medicati Hospital Course Hospital Course: pt has did well with ivf and labs have remained stable - will d/c for close follow up and adjust meds - Objective Vital signs: Temp Pulse Resp BP Pulse Ox 98.0 F 71 18 113/65 99 07/18/18 11:14 07/18/18 11:14 07/18/18 11:14 07/18/18 11:14 07/18/18 11:14 no acute distress - *Routine HEENT Exam Head: Present: normocephalic Eye: Present: EOMI, PERRL ENT: Present: mucous membranes dry - *Routine Neck Exam Present: supple - *Routine Respiratory Exam Present: decreased breath sounds - *Routine Cardiovascular Exam Present: RRR, murmur - *Routine Abdominal Exam Present: soft - *Routine Extremities Exam Present: edema - *Routine Skin Exam Present: intact - *Routine Neurological Exam Present: alert, oriented X3, CN II-XII intact - Routine Psychiatric Exam Present: normal affect Results Labs on day of discharge: Labs from last 24 hours 07/18/18 07/18/18 07/18/18 08:20 08:20 08:20 WBC 4.9 RBC 4.05 L Hgb 13.5 L Hct 39.0 L MCV 96.4 H MCH 33.4 H MCHC 34.7 RDW 12.6 Plt Count 166 MPV 7.3 L Neut % (Auto) 74.6 Lymph % (Auto) 15.8 [place] % (Auto) 5.6 Eos % (Auto) 3.5 Baso % (Auto) 0.4 Neut # (Auto) 3.6 Lymph # (Auto) 0.8 [place] # (Auto) 0.3 Eos # (Auto) 0.2 Baso # (Auto) 0.0 Sodium 134 L Potassium 4.2 Chloride 98 Carbon Dioxide 27 Anion Gap 8.9 BUN 6 L D Creatinine 0.89 D Estimated Creat Clear 96 Estimated GFR 87 Est GFR ( Amer) 105 D Glucose 89 Calcium 8.5 Total Bilirubin AST ALT Alkaline Phosphatase Troponin I Total Protein Albumin Globulin Albumin/Globulin Ratio TSH 0.94 Thyroxine (T4) 8.2 Urine Color Urine Appearance
--- NOTE | 2018-07-18 13:16 | PC.NURSE ---
Home meds returned to pt
--- NOTE | 2018-07-18 13:29 | HMH.PHAINT ---
DISCHARGE COUNSELING--PATIENT CONTINUE CURRENT MEDICATIONS EXCEPT TYLENOL. MD FOLLOWING UP WITH PATIENT IN THE OFFICE WITH ANY MEDICATION CHANGES AT THAT TIME.
== END 2018-07-18 13:21 | disposition home or self-care (01) ==
LOC: ER 13:02 → 2ND 13:35
PROVIDERS: Admitting Provider Emergency Medicine; Emergency Provider Emergency Medicine; PCP Emergency Medicine; Visit Provider Emergency Medicine
DX: I95.9 Hypotension, unspecified (principal); R42 Dizziness and giddiness; R53.1 Weakness; J44.9 Chronic obstructive pulmonary disease, unspecified; E78.5 Hyperlipidemia, unspecified; I10 Essential (primary) hypertension; I25.119 Atherosclerotic heart disease of native coronary artery with unspecified angina pectoris; F17.210 Nicotine dependence, cigarettes, uncomplicated; N28.9 Disorder of kidney and ureter, unspecified; E87.1 Hypo-osmolality and hyponatremia; R41.3 Other amnesia; G47.9 Sleep disorder, unspecified; Z95.5 Presence of coronary angioplasty implant and graft; Z90.49 Acquired absence of other specified parts of digestive tract; Z80.9 Family history of malignant neoplasm, unspecified; Z82.3 Family history of stroke; Z79.02 Long term (current) use of antithrombotics/antiplatelets; Z79.82 Long term (current) use of aspirin; Z79.891 Long term (current) use of opiate analgesic; Z79.899 Other long term (current) drug therapy; Z91.041 Radiographic dye allergy status; Z85.9 Personal history of malignant neoplasm, unspecified; Z82.49 Family history of ischemic heart disease and other diseases of the circulatory system
CPT/HCPCS: 80048; 80053; 81001; 84436; 84443; 84484; 85025; 93005; 96365; 96366; 99285; G0378

== ENCOUNTER → 2018-08-03 07:32 | Outpatient (CLI) | payer MEDICARE, OTHER, SELFPAY ==
--- NOTE | 2018-08-03 07:35 | CI_ITS ---
Cerebrovascular Exam Indications: 433.10 Occlusion/stenosis of carotid artery without cerebral infarction. IMPRESSIONS 1. The bilateral vertebral arteries are patent with normal antegrade flow. 2. Study suggests 50-69%(UPPER END OF SCALE)stenosis involving the right internal carotid artery. 3. Study suggests 100% stenosis involving the left internal carotid artery. No change from the study of 06-Dec-2017. Carotid duplex study. Complete study and Doppler flow study including spectral analysis, color and cortes scale imaging. Location: Vascular laboratory. Patient status: Outpatient. Tables: Arterial flow: + +--------+--------+ Location V sys V ed + +--------+--------+ Right CCA - proximal 63.6cm/s 14.1cm/s + +--------+--------+ Right CCA - distal 54.2cm/s 17.3cm/s + +--------+--------+ Right ECA 86.4cm/s -------- + +--------+--------+ Right ICA - proximal 121cm/s 52.6cm/s + +--------+--------+ Right ICA - mid 92.7cm/s 40.9cm/s + +--------+--------+ Right ICA - distal 84.1cm/s 49.5cm/s + +--------+--------+ Right vertebral 34.2cm/s -------- + +--------+--------+ Left CCA - proximal 50.2cm/s 9.9cm/s + +--------+--------+ Left CCA - distal 34.2cm/s 9.4cm/s + +--------+--------+ Left ECA 126cm/s -------- + +--------+--------+ Left vertebral 43.6cm/s -------- + +--------+--------+ Velocity ratios: + + + + Right, V sys Right, V ed + + + + Max ICA/dist CCA 2.23 3.04 + + + + (Report amended ) Electronically signed by: Rosendo Wolff [id number]
== END ==
PROVIDERS: PCP Emergency Medicine; Visit Provider Internal Medicine Cardiovascular Disease
DX: I65.23 Occlusion and stenosis of bilateral carotid arteries (principal)
CPT/HCPCS: 93880

== ENCOUNTER 2018-08-11 17:36 | Emergency (ER) | payer MEDICARE, OTHER, SELFPAY ==
[2018-08-11 17:21] VITALS: BP 136/68; PULSE 130; RESP 24; TEMP 36.6; O2SAT 97; BMI 29.7; BMI 62.8
--- NOTE | 2018-08-11 17:22 | CT_ITS ---
CT head/brain wo con HISTORY: Altered mental status, altered level consciousness, confusion, disorientation, loss of consciousness ITS.REASON: stroke alert ORDERING PHYSICIAN: Godfrey Gray MD PATIENT AGE: 63 years COMPARISON: 07/08/2018 TECHNIQUE: Spiral images obtained without contrast due to excessive patient movement. Brain and bone windows reviewed. All CT scans at the facility use one or more dose reduction, viz: automated exposure control, ma/kV adjustment per patient size (including targeted exams where dose is matched to indication, i.e. head), or iterative reconstruction technique. FINDINGS: There is generalized atrophy with encephalomalacia changes in the left frontal, parietal, occipital, and posterior temporal region consistent with an old left middle cerebral artery infarction. There is an old lacunar infarction in the right thalamus. No midline shift mass effect or intracranial hemorrhage or hydrocephalus is evident. No mastoid effusion or sinus air-fluid level. There is lobular mucosal thickening of the sphenoid sinus on the left anteriorly with opacification of the right aspect of the sphenoid sinus. IMPRESSION: 1. No acute intracranial findings. 2. 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
[2018-08-11 17:51] VITALS: BP 126/67; PULSE 106; RESP 20; O2SAT 94
--- NOTE | 2018-08-11 18:00 | HMH.EDGENADL ---
ED Disposition <Godfrey Jhaveri - Last Filed: 08/11/18 20:18> Condition on Discharge: Fair Time of Disposition: 20:41 - Critical Care Critical Care Time: No <Godfrey Gray - Last Filed: 08/11/18 20:42> Clinical Impression: CVA (cerebral vascular accident) Disposition: Xfer Short-Term Hosp Referrals: Godfrey Jhaveri MD [Primary Care Provider] - Attestation: On 08/11/18, the high probability of a clinically significant, sudden or life threatening deterioration of the following system(s) required my full and direct attention, intervention and personal management. The time I documented below is in addition to time spent performing reported procedures but includes the following listed in this critical care notation. Medical Decision Making - Lab Data Result diagrams: 08/11/18 17:40 08/11/18 17:40 <Godfrey Jhaveri - Last Filed: 08/11/18 20:18> - Medical Records Medical records reviewed: Yes: I reviewed the patient's medical records. - Eric Inquiry Pt receiving controlled substance: No Eric was queried for this patient: No - Lab Data Lab results reviewed: Yes: I reviewed the patient's lab results. Result diagrams: 08/11/18 17:40 08/11/18 17:40 - Reevaluation(s) Time: 19:35 <Godfrey Gray - Last Filed: 08/11/18 20:42> Vital Signs: 08/11/18 17:21 08/11/18 17:51 08/11/18 20:13 Temperature 97.9 F Temperature Source Temporal Artery Scan Pulse Rate [Left Radial] 130 H 106 H 104 H Respiratory Rate 24 20 18 Blood Pressure [Left Arm] 136/68 126/67 129/65 Blood Pressure Mean [Left Arm] 90 86 86 Blood Pressure Source [Left Arm] Automatic Cuff Automatic Cuff Automatic Cuff Blood Pressure Position [Left Arm] Sitting Sitting Supine 02 Sat by Pulse Oximetry 97 94 L 99 Oxygen Delivery Method Room Air Nasal Cannula Nasal Cannula Oxygen Flow Rate (LPM) 2 3 - Lab Data Lab Results 08/11/18 17:40: WBC 9.7, RBC 4.41 L, Hgb 13.7 L, Hct 41.3 L, MCV 93.5, MCH 31.0, MCHC 33.1, RDW 12.7, Plt Count 335, MPV 6.8 L, Neut % (Auto) 63.3, Lymph % (Auto) 26.2, [place] % (Auto) 8.5, Eos % (Auto) 1.7, Baso % (Auto) 0.4, Neut # (Auto) 6.1, Lymph # (Auto) 2.5, [place] # (Auto) 0.8, Eos # (Auto) 0.2, Baso # (Auto) 0.0 08/11/18 17:40: Sodium 132 L, Potassium 3.5, Chloride 94 L, Carbon Dioxide 27, Anion Gap 14.5, BUN 8, Creatinine 1.05, Estimated Creat Clear 79, Estimated GFR 71, Est GFR ( Amer) 86, Glucose 117 H, Calcium 8.9, Total Bilirubin 0.5, AST 12 L, ALT 22, Alkaline Phosphatase 92, Troponin I < 0.02, Total Protein 7.4, Albumin 3.5, Globulin 3.9 H, Albumin/Globulin Ratio 0.9 L 08/11/18 17:45: Urine Color Yellow, Urine Appearance Clear, Urine pH 6.0, Ur Specific [place] 1.020, Urine Protein Trace, Urine Glucose (UA) Negative, Urine Ketones Negative, Urine Blood Negative, Urine Nitrate Negative, Urine Bilirubin Negative, Urine Urobilinogen 0.2, Ur Leukocyte Esterase Negative, Urine RBC Occasional, Urine WBC 3-5, Urine Bacteria 1+, Urine Mucus 3+ 08/11/18 17:45: Urine Opiates Screen Negative, Urine Methadone Screen Negative, Ur Barbituates Screen Negative, Ur Phencyclidine Scrn Negative, Ur Amphetamines Screen Negative, U Benzodiazepines Scrn Negative, Urine Cocaine Screen Negative, U Marijuana (THC) Screen Negative 08/11/18 18:16: POC Glucose 143 H Orders (Tests/Meds): ED MEDICATIONS Discontinued Medications Generic Name Dose Route Start Last Admin Trade Name Freq PRN Reason Stop Dose Admin Levetiracetam 1,500 mg/ Sodium 115 mls @ 230 mls/hr 08/11/18 18:32 08/11/18 18:52 Chloride IV 08/11/18 18:33 230 mls/hr ONCE ONE Administration Ketorolac Tromethamine 30 mg 08/11/18 19:37 08/11/18 20:04 Toradol 30mg/Ml Vial IV 08/11/18 19:38 30 mg ONCE ONE Administration Lorazepam 2 mg 08/11/18 18:00 08/11/18 18:22 Ativan 2mg/Ml Vial IV 08/11/18 18:01 2 mg ONCE ONE Administration Ondansetron HCl 4 mg 08/11/18 18:30 08/11/18 18:32 Zofran 4mg/2ml Vial IV 08/11/18 18:31 4
--- NOTE | 2018-08-11 18:05 | XR_ITS ---
XR chest portable HISTORY: Unresponsive ITS.REASON: obtundation ORDERING PHYSICIAN: Godfrey Gray MD PATIENT AGE: 63 years COMPARISON: 07/08/2018 FINDINGS: The cardiomediastinal silhouette and pulmonary vascularity are within normal limits. The lungs are clear without infiltrates, suspicious nodules, or pleural effusions. No acute bony abnormalities. IMPRESSION: No change with no acute finding
[2018-08-11 18:15] LABS: Microscopic, Urine URINE MICROSCOPIC (MICROSCOPIC)
--- NOTE | 2018-08-11 18:16 | ED_ITS ---
ED Disposition <Godfrey Jhaveri - Last Filed: 08/11/18 20:18> Condition on Discharge: Fair Time of Disposition: 20:41 - Critical Care Critical Care Time: No <Godfrey Gray - Last Filed: 08/11/18 20:42> Clinical Impression: CVA (cerebral vascular accident) Disposition: Xfer Short-Term Hosp Referrals: Godfrey Jhaveri MD [Primary Care Provider] - Attestation: On 08/11/18, the high probability of a clinically significant, sudden or life threatening deterioration of the following system(s) required my full and direct attention, intervention and personal management. The time I documented below is in addition to time spent performing reported procedures but includes the following listed in this critical care notation. Medical Decision Making - Lab Data Result diagrams: 08/11/18 17:40 08/11/18 17:40 <Godfrey Jhaveri - Last Filed: 08/11/18 20:18> - Medical Records Medical records reviewed: Yes: I reviewed the patient's medical records. - Eric Inquiry Pt receiving controlled substance: No Eric was queried for this patient: No - Lab Data Lab results reviewed: Yes: I reviewed the patient's lab results. Result diagrams: 08/11/18 17:40 08/11/18 17:40 - Reevaluation(s) Time: 19:35 <Godfrey Gray - Last Filed: 08/11/18 20:42> Vital Signs: 08/11/18 17:21 08/11/18 17:51 08/11/18 20:13 Temperature 97.9 F Temperature Source Temporal Artery Scan Pulse Rate [Left Radial] 130 H 106 H 104 H Respiratory Rate 24 20 18 Blood Pressure [Left Arm] 136/68 126/67 129/65 Blood Pressure Mean [Left Arm] 90 86 86 Blood Pressure Source [Left Arm] Automatic Cuff Automatic Cuff Automatic Cuff Blood Pressure Position [Left Arm] Sitting Sitting Supine 02 Sat by Pulse Oximetry 97 94 L 99 Oxygen Delivery Method Room Air Nasal Cannula Nasal Cannula Oxygen Flow Rate (LPM) 2 3 - Lab Data Lab Results 08/11/18 17:40: WBC 9.7, RBC 4.41 L, Hgb 13.7 L, Hct 41.3 L, MCV 93.5, MCH 31.0, MCHC 33.1, RDW 12.7, Plt Count 335, MPV 6.8 L, Neut % (Auto) 63.3, Lymph % (Auto) 26.2, [place] % (Auto) 8.5, Eos % (Auto) 1.7, Baso % (Auto) 0.4, Neut # (Auto) 6.1, Lymph # (Auto) 2.5, [place] # (Auto) 0.8, Eos # (Auto) 0.2, Baso # (Auto) 0.0 08/11/18 17:40: Sodium 132 L, Potassium 3.5, Chloride 94 L, Carbon Dioxide 27, Anion Gap 14.5, BUN 8, Creatinine 1.05, Estimated Creat Clear 79, Estimated GFR 71, Est GFR ( Amer) 86, Glucose 117 H, Calcium 8.9, Total Bilirubin 0.5, AST 12 L, ALT 22, Alkaline Phosphatase 92, Troponin I < 0.02, Total Protein 7.4, Albumin 3.5, Globulin 3.9 H, Albumin/Globulin Ratio 0.9 L 08/11/18 17:45: Urine Color Yellow, Urine Appearance Clear, Urine pH 6.0, Ur Sp ecific [place] 1.020, Urine Protein Trace, Urine Glucose (UA) Negative, Urine Ketones Negative, Urine Blood Negative, Urine Nitrate Negative, Urine Bilirubin Negative, Urine Urobilinogen 0.2, Ur Leukocyte Esterase Negative, Urine RBC Occasional, Urine WBC 3-5, Urine Bacteria 1+, Urine Mucus 3+ 08/11/18 17:45: Urine Opiates Screen Negative, Urine Methadone Screen Negative, Ur Barbituates Screen Negative, Ur Phencyclidine Scrn Negative, Ur Amphetamines Screen Negative, U Benzodiazepines Scrn Negative, Urine Cocaine Screen Negative, U Marijuana (THC) Screen Negative 08/11/18 18:16: POC Glucose 143 H
[2018-08-11 18:17] LABS: Appearance,Urine CLEAR (Clear); Bilirubin,Urine Negative (Negative); Blood, Urine Negative (Negative); Color,Urine YELLOW (Yellow); Glucose,Urine (UA) Negative (Negative); Ketones,Urine Negative (Negative); Leukocyte Esterase,Urine Negative (Negative); Nitrate,Urine Negative (Negative); Protein,Urine TRACE (Negative); Urobilinogen,Urine 0.2 EU/dl (0.2)
[2018-08-11 18:24] LABS: POC Glucose,Bedside 143 (70-110)
[2018-08-11 18:29] LABS: Basophils % 0.4 % (0.1-2.0); Eosinophils # 0.2 K/mm3 (0.0-0.4); Eosinophils % 1.7 % (0.1-12.0); Hematocrit 41.3 % (42.0-52.0); Hemoglobin 13.7 g/dL (14.1-18.0); Lymphocytes # 2.5 K/mm3 (0.7-4.5); Lymphocytes % 26.2 % (10-50); Mean Corpuscular HGB Conc 33.1 g/dL (31.8-35.4); Mean Corpuscular Volume 93.5 fl (80-94); Mean Platelet Volume 6.8 fl (7.4-10.4); Monocytes # 0.8 K/mm3 (0.1-1.0); Monocytes % 8.5 % (1.7-9.3); Neutrophils # 6.1 K/mm3 (1.8-7.8); Neutrophils % 63.3 % (37.0-80.0); Platelet Count 335 K/mm3 (142-424); Red Blood Count 4.41 M/mm3 (4.60-6.20); Red Cell Distribution Width 12.7 % (11.5-17.5); White Blood Count 9.7 K/mm3 (4.8-10.8)
[2018-08-11 18:29] LABS: Amphetamine/Metha Screen,Urine Negative ng/mL (<1000); Barbiturates Screen,Urine Negative ng/mL (<200); Benzodiazepines Screen,Urine Negative ng/mL (<200); Cannabinoid Screen,Urine Negative ng/mL (<50); Cocaine Screen,Urine Negative ng/mL (<300); Methadone Screen,Urine Negative ng/mL (<300); Opiate Screen,Urine Negative ng/mL (<300); Phencyclidine Screen,Urine Negative ng/mL (<25)
[2018-08-11 18:32] LABS: Bacteria,Urine 1+ /lpf; Mucus,Urine 3+ /lpf; RBC,Urine Occasional #/hpf (0-3)
[2018-08-11 18:32] LABS: Alanine Aminotransferase 22 U/L (12-78); Albumin Level 3.5 gm/dL (3.4-5.0); Albumin/Globulin Ratio 0.9 (1.1-1.8); Alkaline Phosphatase 92 U/L (46-116); Anion Gap 14.5 mEq/L (5-15); Aspartate Amino Transferase 12 U/L (15-37); Bilirubin,Total 0.5 mg/dL (0.2-1.0); Blood Urea Nitrogen 8 mg/dL (7-18); Calcium 8.9 mg/dL (8.5-10.1); Carbon Dioxide 27 mmol/L (21.0-32.0); Chloride 94 mmol/L (98-107); Creatinine Clearance Estimated 79 mL/min (50-200); Creatinine,Serum 1.05 mg/dL (0.70-1.30); Estimated Glomerular Filt Rate 71 ml/min (>60); GFR (African American) 86 ML/MIN (>60); Globulin 3.9 gm/dl (1.3-3.2); Glucose 117 mg/dL (74-106); Potassium 3.5 mmoL/L (3.5-5.1); Sodium 132 mmol/L (136-145); Total Protein,Serum 7.4 gm/dL (6.4-8.2); Troponin I < 0.02 ng/ml (0.00-0.06)
--- NOTE | 2018-08-11 18:32 | PC.NURSE ---
SPOKE WITH SAMMY FROM PHARMACY. SAMMY ADVISED A KEPPRA LOADING DOSE OF 1.5G IV OVER 60 MINS
[2018-08-11 20:13] VITALS: BP 129/65; PULSE 104; RESP 18; O2SAT 99
--- NOTE | 2018-08-11 20:27 | PC.NURSE ---
speaking to [facility]
[2018-08-11 21:01] VITALS: BP 125/71; PULSE 95; RESP 18; O2SAT 100
--- NOTE | 2018-08-11 21:18 | PC.NURSE ---
Pt requesting maloney to be removed, maloney dc'd
--- NOTE | 2018-08-11 21:19 | PC.NURSE ---
Report called to [facility] here to transport
[2018-08-11 21:43] VITALS: BP 129/85; PULSE 86; RESP 16; TEMP 37.2; O2SAT 99
== END 2018-08-11 21:30 | disposition short-term general hospital (02) ==
PROVIDERS: Emergency Provider Emergency Medicine; PCP Emergency Medicine
DX: I63.9 Cerebral infarction, unspecified (principal); I25.10 Atherosclerotic heart disease of native coronary artery without angina pectoris; J44.9 Chronic obstructive pulmonary disease, unspecified; I10 Essential (primary) hypertension; E78.5 Hyperlipidemia, unspecified; F17.210 Nicotine dependence, cigarettes, uncomplicated
CPT/HCPCS: 36415; 70450; 71045; 80053; 80305; 81001; 82962; 84484; 85025; 87086; 93005; 96365; 96375; 99284; J1953; J2405

== ENCOUNTER 2018-08-17 07:33 | Outpatient (RCR) | payer MEDICARE, OTHER, SELFPAY | END 2018-08-17 07:35 | disposition home or self-care (01) | LOC: PT 07:33 | PROVIDERS: Visit Provider Nurse Practitioner Family | DX: M62.81 Muscle weakness (generalized) (principal) | CPT/HCPCS: 97163 ==